=== PATIENT | female | born 1995 | race Caucasian/White ===

== ENCOUNTER 2016-07-10 08:00 | Emergency (ER) | payer OTHER ==
[~2016-07-10] VITALS: Ht 157.5 cm; Wt 73.8 kg
[~2016-07-10 08:00] MED LIST: ONDA4TAB46 PO
[2016-07-10 08:06] VITALS: TEMP 36.8; Ht 157.5 cm; Wt 73.8 kg
[2016-07-10] MEDS ORDERED: PRLSR20 PO (08:35)
[2016-07-10] MEDS ORDERED: ZLF/50 PO (08:35)
[2016-07-10] MEDS ORDERED: CLR10 PO (08:35)
[2016-07-10 09:00] VITALS: BP 108/83; PULSE 70; O2SAT 97
--- NOTE | 2016-07-10 17:14 | EMERGENCY ROOM VISIT NOTE ---
ED Visit Note First contact with patient: 08:14 Chief Complaint: Needlestick injury. History of Present Illness: Ms. Denise is a 21-year-old white female who ambulates into the ED complaining of a needlestick injury to the finger pad of the left thumb. 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 She reports approximately one hour ago she was drawing blood on a patient from [facility]. She was disposing of her needle when the patient became combative. During his combative area she reports her thumb went into the sharps container and she sustained a needlestick injury to the thumb. She does report the container was partially fold from previous blood draws at the facility; approximately 10-15, and she did have mild bleeding. She does not know the health status of the patient that she was drawing at the time of the injury or any of the other 10-15 people which she had drawn blood from. Prior to being seen in the ED she does report she cleansed the area with soap and water and control bleeding. Currently she has no additional complaints. Review of Systems: As noted above in history of present illness. Past Medical History: Irritable bowel syndrome, kidney stones, status post tonsillectomy, wisdom teeth extraction and unspecified sinus surgery. Current Medications: Prilosec, Claritin and Sertraline. Allergies to Medications: Patient denies. Social History: Patient is currently employed; she feels safe in her home environment; she admits to tobacco use and denies alcohol use. Physical Examination: Vital Signs: Date Time Temp Pulse Resp B/P Pulse Ox O2 Delivery O2 Flow Rate FiO2 07/10/16 09:00 70 18 108/83 97 07/10/16 08:06 36.8 87 18 119/76 97 Room Air GENERAL: 21-year-old female in no acute distress, nontoxic-appearing, afebrile and hemodynamically stable. NEUROLOGICAL: Awake, alert and oriented to person, place and time. Answering questions appropriately and following commands. Good hand eye coordination. SKIN: Warm, dry and pink. Left Thumb: Over the finger pad there is one noted puncture wound with no active bleeding. LEFT THUMB: No gross bony deformity. Please note description above under SKIN. Throughout the thumb the skin was warm and pink and capillary refill is brisk. She is able to distinguish light sensations through all dermatomes. ED Course: Patient is assessed as noted above. Patient was educated about vladimiright's findings and instructed on her treatment plan; she verbalizes understanding and agreement with this plan. Clinical Impression: Work-related needlestick injury and blood exposure. Disposition: Patient discharged home in stable condition; prior to departure she was reassessed and subjectively reported she was still pain and symptom- free. Plan: Comfort measures, wound care and signs of infection were discussed with the patient. Patient is encouraged to go to the outpatient lab for drawing of normal tests. Patient is encouraged to follow-up at [facility] for testing results and/ or signs of infection.
== END 2016-07-10 09:10 | disposition home or self-care (01) ==
LOC: C.EDB 08:01 → C.EDA 09:10
DX: S61.032A Puncture wound without foreign body of left thumb without damage to nail, initial encounter (principal); Z77.21 Contact with and (suspected) exposure to potentially hazardous body fluids; W46.1XXA Contact with contaminated hypodermic needle, initial encounter; Y92.129 Unspecified place in nursing home as the place of occurrence of the external cause; Y99.0 Civilian activity done for income or pay; K58.9 Irritable bowel syndrome, unspecified; Z87.442 Personal history of urinary calculi; Z79.899 Other long term (current) drug therapy; Z72.0 Tobacco use

== ENCOUNTER 2017-10-31 20:30 | Emergency (ER) | payer OTHER ==
[~2017-10-31] VITALS: Ht 154.9 cm; Wt 70.5 kg
[~2017-10-31 20:30] MED LIST changes: +CLR10 PO; -ONDA4TAB46 PO; +PRLSR20 PO; +ZLF/50 PO
[2017-10-31 20:31] VITALS: TEMP 36.6; Ht 154.9 cm; Wt 70.5 kg
[2017-10-31] MEDS ORDERED: SODIUM CHLORIDE 0.9% 1000ML 1,000 ML IV STA (20:39)
[2017-10-31 21:01] LABS: BASO % 0.1 %; BASO ABS # 0.01 K/uL (0-0.2); EOS % 1.7 %; EOS ABS # 0.13 K/uL (0-0.5); HEMATOCRIT 41.8 % (37-47); HEMOGLOBIN 14.1 g/dL (12.0-16.0); IG# 0.01 K/uL (0.00-0.02); LYMPH % 39.4 %; LYMPH ABS # 3.05 K/uL (1.2-3.4); MEAN CELL VOLUME 80.4 fL (80-100); MEAN CORPUSCULAR HEMOGLOBIN 27.1 pg (25-34); MEAN CORPUSCULAR HGB CONC 33.7 g/dl (32-36); MEAN PLATELET VOLUME 10.5 fL (7.4-10.4); MONO ABS # 0.62 K/uL (0.11-0.59); NEUT % 50.7 %; NEUT ABS # 3.92 K/uL (1.4-6.5); PLATELET COUNT 262 K/uL (130-400); RED CELL DISTRIBUTION WIDTH CV 12.7 % (11.5-14.5); RED CELL DISTRIBUTION WIDTH SD 36.9 fL (36.4-46.3); WHITE BLOOD COUNT 7.74 K/uL (4.8-10.8)
[2017-10-31 21:23] LABS: ALBUMIN 3.7 gm/dl (3.4-5.0); ALKALINE PHOSPHATASE 73 U/L (45-117); ALT/SGPT 30 U/L (12-78); AST/SGOT 20 U/L (15-37); BLOOD UREA NITROGEN 9 mg/dl (7-18); CALCIUM 9.4 mg/dl (8.5-10.1); CARBON DIOXIDE 26 mmol/L (21-32); CREATININE 0.73 mg/dl (0.60-1.20); GLUCOSE 93 mg/dl (70-99); LIPASE 169 U/L (73-393); POTASSIUM 3.7 mmol/L (3.5-5.1); SODIUM 138 mmol/L (136-145); TOTAL PROTEIN 8.1 gm/dl (6.4-8.2)
--- NOTE | 2017-10-31 21:36 | DIAGNOSTIC IMAGING REPORT ---
(ELOY/BLAD)RETROPERITON COMP CLINICAL HISTORY: 22 years-old Female presenting with eval for hydro. TECHNIQUE: Real-time grayscale and limited color Doppler ultrasound imaging of the kidneys and bladder was performed. COMPARISON: None. FINDINGS: Right kidney: Normal echogenicity of renal parenchyma. Right kidney measures 10.4 cm. No hydronephrosis. No convincing evidence of calculus or mass. Left kidney: Normal echogenicity of renal parenchyma. Left kidney measures 10.9 cm. No hydronephrosis. No convincing evidence of calculus or mass. Bladder: Normal. Bilateral ureteral jets present. Other: Hyperechogenicity of hepatic parenchyma suggests hepatic steatosis. IMPRESSION: 1. Normal renal ultrasound. No obstruction. 2. Findings suggest hepatic steatosis. Electronically signed by: Don Restrepo M.D. 10/31/2017 9:34 PM Dictated Date/Time: 10/31/2017 9:33 PM
[2017-10-31] MEDS ORDERED: KETOROLAC TROMETHAMINE 30 MG/ML VIAL IV STA (21:51)
[2017-10-31] MEDS ORDERED: SULF800T23 PO (22:44)
[2017-10-31 22:54] VITALS: BP 100/72; PULSE 71; O2SAT 97
[2017-10-31] MEDS ORDERED: OMEP40CA41 PO (22:55)
--- NOTE | 2017-10-31 23:02 | EMERGENCY ROOM VISIT NOTE ---
History Report prepared by Nerissa: Gloria Poon Under the Supervision of: Dr. Ruiz Goff M.D. First contact with patient: 20:35 Chief Complaint: KIDNEY STONE Stated Complaint: POSSIBLE UTI, KIDNEY STONES History of Present Illness The patient is a 22 year old female who presents to the Emergency Room with complaints of worsening back pain that started a week ago. The patient reports that the pain is mostly in the right side of her back and that it does not radiate. She notes that the pain had been intermittent over the past week but has significantly worsened over the past 2 days. She currently rates her pain a 6/10. She also states that her urine smells and andres. She reports that her symptoms have been accompanied by nausea and one episode of incontinence yesterday. She just stated that she had to go to the bathroom did make it on time. She has not had any incontinence since then. She has had no radiation of her pain down her legs. She denies numbness and weakness in her legs. The patient notes that she is currently on her period and has noticed no abnormal discharge or bleeding otherwise. She does have a history of kidney stones and states that this feels very similar to her prior symptoms. Source of History: patient Onset: a week ago Position: back (right side) Symptom Intensity: 6/10 Quality: other (pain) Timing: worsening Modifying Factors (Relieving): other (Lying down) Associated Symptoms: + nausea, + urinary symptoms (urine smells and andres) Note: Additional symptoms: incontinence Review of Systems See HPI for pertinent positives & negatives. A total of 10 systems reviewed and were otherwise negative. Past Medical & Surgical Medical Problems: (1) IBS (irritable bowel syndrome) (2) Kidney stones Family History Cancer Diabetes mellitus FHx: gallbladder disease Heart disease Hypertension Social History Smoking Status: Current Every Day Smoker Marital Status: single Housing Status: lives with family Current/Historical Medications Scheduled Loratadine (Claritin), 10 MG PO DAILY Omeprazole (Prilosec), 40 MG PO DAILY Sertraline HCl (Sertraline HCl), 50 MG PO DAILY Sulfa/Trimethoprim (Bactrim Ds 800MG/160MG), 1 TAB PO BID Allergies Coded Allergies: No Known Allergies (Unverified , 07/10/16) Physical Exam Vital Signs Date Time Temp Pulse Resp B/P (MAP) Pulse Ox O2 Delivery O2 Flow Rate FiO2 10/31/17 22:54 71 16 100/72 97 10/31/17 21:49 71 18 109/60 98 Room Air 10/31/17 20:31 36.6 83 16 136/89 97 Room Air Physical Exam Constitutional: Vital signs reviewed. Eyes: Pupils are equal round reactive to light. Conjunctiva are noninjected. ENT: Pharynx is clear without erythema or exudate. Mucous membranes are moist. Neck supple without meningeal signs. Respiratory: Clear to auscultation bilaterally. Breath sounds are equal bilaterally. Cardiovascular: Regular rate and rhythm. No rubs or gallops. GI: Soft, nondistended and nontender. Bowel sounds are present. Musculoskeletal: No peripheral edema. No lower extremity tenderness. No CVA tenderness. No midline tenderness to the lumbosacral spine. Integumentary: No cyanosis. Neurological: The patient is awake and alert. No focal deficits. Normal gait. Psychiatric: Normal affect. Medical Decision & Procedures ER Provider Diagnostic Interpretation: Radiology results as stated below per my review and the radiologist's interpretation: (ELOY/BLAD)RETROPERITON COMP CLINICAL HISTORY: 22 years-old Female presenting with eval for hydro. TECHNIQUE: Real-time grayscale and limited color Doppler ultrasound imaging of the kidneys and bladder was performed. COMPARISON: None. FINDINGS: Right kidney: Normal echogenicity of renal parenchyma. Right kidney measures 10.4 cm. No hydronephrosis. No convincing evidence of calculus or mass. Left kidney: Normal echogenicity of renal parenchyma. Left kidney measures 10.9 cm. No hydronephrosis. No convincing evidence of calculus or mass. Bladder: Normal. Bilateral ureteral jets present. Other: Hyperechogenicity of hepatic parenchyma suggests hepatic steatosis. IMPRESSION: 1. Normal renal ultrasound. No obstruction. 2. Findings suggest hepatic steatosis. Electronically signed by: Don Restrepo M.D. 10/31/2017 9:34 PM Dictated Date/Time: 10/31/2017 9:33 PM Laboratory Results 10/31/17 20:46 Red Blood Count 5.20, Mean Corpuscular Volume 80.4, Mean Corpuscular Hemoglobin 27.1, Mean Corpuscular Hemoglobin Concent 33.7, Mean Platelet Volume 10.5, Neutrophils (%) (Auto) 50.7, Lymphocytes (%) (Auto) 39.4, Monocytes (%) (Auto) 8.0, Eosinophils (%) (Auto) 1.7, Basophils (%) (Auto) 0.1, Neutrophils # (Auto) 3.92, Lymphocytes # (Auto) 3.05, Monocytes # (Auto) 0.62, Eosinophils # (Auto) 0.13, Basophils # (Auto) 0.01 10/31/17 20:46 Test 10/31/17 20:46 10/31/17 21:40 White Blood Count 7.74 K/uL (4.8-10.8) Red Blood Count 5.20 M/uL (4.2-5.4) Hemoglobin 14.1 g/dL (12.0-16.0) Hematocrit 41.8 % (37-47) Mean Corpuscular Volume 80.4 fL (80-100) Mean Corpuscular Hemoglobin 27.1 pg (25-34) Mean Corpuscular Hemoglobin Concent 33.7 g/dl (32-36) Platelet Count 262 K/uL (130-400) Mean Platelet Volume 10.5 fL (7.4-10.4) Neutrophils (%) (Auto) 50.7 % Lymphocytes (%) (Auto) 39.4 % Monocytes (%) (Auto) 8.0 % Eosinophils (%) (Auto) 1.7 % Basophils (%) (Auto) 0.1 % Neutrophils # (Auto) 3.92 K/uL (1.4-6.5) Lymphocytes # (Auto) 3.05 K/uL (1.2-3.4) Monocytes # (Auto) 0.62 K/uL (0.11-0.59) Eosinophils # (Auto) 0.13 K/uL (0-0.5) Basophils # (Auto) 0.01 K/uL (0-0.2) RDW Standard Deviation 36.9 fL (36.4-46.3) RDW Coefficient of Variation 12.7 % (11.5-14.5) Immature Granulocyte % (Auto) 0.1 % Immature Granulocyte # (Auto) 0.01 K/uL (0.00-0.02) Anion Gap 6.0 mmol/L (3-11) Est Creatinine Clear Calc Drug Dose 108.5 ml/min Estimated GFR () 135.5 Estimated GFR (Non- 116.9 BUN/Creatinine Ratio 12.7 (10-20) Calcium Level 9.4 mg/dl (8.5-10.1) Total Bilirubin 0.2 mg/dl (0.2-1) Direct Bilirubin < 0.1 mg/dl (0-0.2) Aspartate Amino Transf (AST/SGOT) 20 U/L (15-37) Alanine Aminotransferase (ALT/SGPT) 30 U/L (12-78) Alkaline Phosphatase 73 U/L (45-117) Total Protein 8.1 gm/dl (6.4-8.2) Albumin 3.7 gm/dl (3.4-5.0) Lipase 169 U/L (73-393) Urine Color YELLOW Urine Appearance TURBID (CLEAR) Urine pH 8.5 (4.5-7.5) Urine Specific Chapman 1.017 (1.000-1.030) Urine Protein NEG (NEG) Urine Glucose (UA) NEG (NEG) Urine Ketones NEG (NEG) Urine Occult Blood 1+ (NEG) Urine Nitrite NEG (NEG) Urine Bilirubin NEG (NEG) Urine Urobilinogen NEG (NEG) Urine Leukocyte Esterase NEG (NEG) Urine WBC (Auto) 0 /hpf (0-5) Urine RBC (Auto) 0-4 /hpf (0-4) Urine Hyaline Casts (Auto) 0 /lpf (0-5) Urine Epithelial Cells (Auto) 20-30 /lpf (0-5) Urine Bacteria (Auto) NEG (NEG) Urine Test NEG (NEG) Laboratory results as reviewed by me. Medications Administered Medications (Trade) Dose Ordered Sig/Tan Route Start Time Stop Time Status Last Admin Dose Admin Sodium Chloride 1,000 ml @ 999 mls/hr Q1H1M STAT IV 10/31/17 20:39 10/31/17 21:39 DC 10/31/17 20:39 999 MLS/HR Ketorolac Tromethamine (Toradol Inj) 10 mg NOW STAT IV 10/31/17 21:51 10/31/17 21:52 DC 10/31/17 21:57 10 MG ED Course 2037: The patient was evaluated in room C4. A complete history and physical exam was performed. 2038: Administered Sodium Chloride 1000 ml @ 999 mls/hr IV. 2149: I checked on the patient and discussed her ultrasound and blood work results. 2150: Administered Toradol Inj 10 mg IV. 2249: Upon reevaluation, the patient appeared to have improvement of her symptoms. I discussed tonroberto's findings with her. She verbalized agreement of the treatment plan. The patient was discharged home. Medical Decision This is a 22-year-old female presents with bilateral flank pain. Differential diagnosis includes ureterolithiasis, hydronephrosis, UTI, pyelonephritis, strain. I did perform a limited focused review of portions of the patient's old chart on the electronic medical record. The patient has had no recent pertinent visits to this hospital. I did evaluate the patient as noted above. Patient is presenting with bilateral flank pain, greater on the right side. She states it feels similar to when she had a previous kidney stone. IV access was established. I did order and personally review the patient's urinalysis as described above. There is no evidence of infection. She does have hematuria. The urine culture was sent. I did treat her with Toradol IV. I did order and review the patient's blood work as noted in the electronic medical record. Her white blood cell count is not elevated. Renal function is normal. I did order an ultrasound of the kidneys. I did review the images myself as well as the radiology report as described above. There is no evidence of hydronephrosis or kidney stone. I did reassess patient. She is feeling better. It is unclear what is causing her back pain. She has had it for about a week. I do not suspect an acute surgical process. She has no abdominal tenderness. She does state that is sometimes better when she lies down and worse when she moves. It may be musculoskeletal. I did recommend she continue using NSAIDs and follow-up closely with her doctor. She does state that she has had dysuria and no diarrhea and so I did treat her with antibiotics. She was given Bactrim here and discharged with a prescription for Bactrim. Medication Reconcilliation Current Medication List: was personally reviewed by me Blood Pressure Screening Patient's blood pressure: Elevated blood pressure Blood pressure disposition: Referred to PCP Impression Primary Impression: Bilateral flank pain Additional Impression: Dysuria Scribe Attestation The scribe's documentation has been prepared under my direct and personally reviewed by me in its entirety. I confirm that the note above accurately reflects all work, treatment, procedures, and medical decision making performed by me. Departure Information Dispostion Home / Self-Care Prescriptions Sulfa/Trimethoprim (Bactrim Ds 800MG/160MG) Tab 1 TAB PO BID, #14 TAB Prov: Ruiz Goff M.D. 10/31/17 Referrals Yuniel Dumont M.D. (PCP) Forms HOME CARE DOCUMENTATION FORM, IMPORTANT VISIT INFORMATION Patient Instructions My [facility] Additional Instructions You have been examined and treated today on an emergency basis only. This is not a substitute for, or an effort to provide, complete comprehensive medical care. It is impossible to recognize and treat all injuries or illnesses in a single emergency department visit. It is therefore important that you follow up closely with your physician. Call as soon as possible for an appointment. Return for worsening symptoms or if you develop fever, vomiting, abdominal pain , loss of control of your bowel or bladder, numbness or weakness to your legs, numbness to your private area, difficulty urinating, or any other concerning symptoms. Problem Qualifiers
== END 2017-10-31 22:54 | disposition home or self-care (01) ==
LOC: C.EDB 20:31 → C.EDC 22:54
DX: R10.31 Right lower quadrant pain (principal); R10.32 Left lower quadrant pain; R30.0 Dysuria; Z87.442 Personal history of urinary calculi; K58.9 Irritable bowel syndrome, unspecified; Z80.9 Family history of malignant neoplasm, unspecified; Z83.3 Family history of diabetes mellitus; Z83.79 Family history of other diseases of the digestive system; Z82.49 Family history of ischemic heart disease and other diseases of the circulatory system; F17.210 Nicotine dependence, cigarettes, uncomplicated; Z79.899 Other long term (current) drug therapy

== ENCOUNTER 2021-11-27 21:32 | Inpatient (IN) ==
[2021-11-28 00:22] LABS: Creatinine Urine Random 82.1 mg/dl; Protein Creatinine Ratio Urine 0.2 (0-0.2); Total Protein Urine Random 19.9 mg/dl (0-11.9)
[2021-11-28] MEDS ORDERED: PENICILLIN G POTASSIUM 6 MU in DEXTROSE 5% 250 ML IV STA (01:07)
[2021-11-28] MEDS ORDERED: BUTORPHANOL TARTRATE 1 MG/ML VIAL IV PRN (01:07)
[2021-11-28] MEDS ORDERED: OXYTOCIN 30 UNITS/500 ML BAG IV PRN ×2 (01:07→03:41)
[2021-11-28] MEDS ORDERED: LIDOCAINE 1% LOCAL 20 ML VIAL INFIL PRN (01:07)
--- NOTE | 2021-11-28 01:14 | History & Physical Report ---
Date of Service November 28, 2021 History of Present Illness Chief Complaint: onst of labor Primary Care Provider: Olimpia WelshTyshawn Bubba, DO 26 F P0010 at 38.5 weeks with onset of labor earlier last evening. Her GBS is negative. Allergies Allergy/AdvReac Type Severity Reaction Status Date / Time No Known Allergies Allergy Verified 11/07/21 21:44 Home Medications Medication Instructions Recorded Confirmed Type aspirin 81 mg chewable tablet 81 mg PO DAILY 07/13/21 11/27/21 History atomoxetine 40 mg capsule 40 mg PO QAM 07/13/21 11/27/21 History duloxetine 30 mg capsule,delayed 30 mg PO DAILY 07/13/21 11/27/21 History release (Cymbalta) prenat.vits,saw,[id number]-[id number] 1 tab PO DAILY 07/13/21 11/27/21 History Patient History Medical History ADHD Anxiety during Chest pain Diarrhea History of COVID-19 03/2021 Kidney stones Lower abdominal pain Surgical History H/O sinus surgery Hx of tonsillectomy No significant past surgical history Family History Mother Psoriatic arthritis Mother Diabetes Grandfather (Maternal) Asthma Grandfather (Paternal) Asthma Grandfather (Maternal) Myocardial infarction Grandfather (Paternal) Myocardial infarction Mother Hypertension Father Hypertension Other No significant family history Social History Smoking Status: Former smoker Age Quit Using Tobacco: 25; Hx Alcohol Use: No Hx Substance Use: No Preferred Language: Yoruba Communication Ability: Effective Engineering Tech Required: No Beliefs That Will Affect Care: None marital status: Single Current Living Situation: Spouse Current Living Situation Comment: FOB current occupational status: employed and student current occupation: HEAD START COORDINATOR- [employer] Other Information That Helps Us Care for You: No Feels Safe at Home: Yes Safety Concerns: Feels Safe At This Time Childhood Exposure to Second-Hand Smoke: No Dental Care, Regularly: Yes Seatbelt Use: always Sunscreen Use: Yes Do you think of yourself as: straight/heterosexual Gender Identity: Female Assistive Devices: Contacts and Glasses OB History primip YACHT HAND History neg Review of Systems All systems reviewed & are unremarkable except as noted in HPI & below Results & Data ([facility]) Vital Signs (Past 12 Hours) Vital Signs Temp Pulse Resp BP 11/27/21 23:21 20 11/27/21 23:21 37.0 C 20 11/28/21 00:50 98 H 134/84 11/28/21 00:40 103 H 153/89 H 11/28/21 00:31 100 H 140/80 11/28/21 00:11 100 H 159/87 H 11/28/21 00:02 101 H 154/104 H 11/27/21 23:51 115 H 136/90 11/27/21 23:40 110 H 166/97 H 11/27/21 23:30 106 H 128/94 11/27/21 23:20 92 H 140/87 11/27/21 23:10 103 H 148/95 H 11/27/21 23:00 96 H 148/95 H 11/27/21 22:51 96 H 159/98 H 11/27/21 22:41 109 H 140/91 11/27/21 22:31 109 H 145/95 H 11/27/21 22:20 100 H 146/95 H 11/27/21 22:02 99 H 138/91 11/27/21 21:43 114 H 142/94 H 11/27/21 21:44 37.1 C 120 H 18 147/95 H Laboratory Results Laboratory Results - last 48 hr 11/27/21 22:55 Ur Random Creatinine 82.1 U Random Total Protein 19.9 H Protein/Creatinin Ratio 0.2 Code Status & VTE Plan VTE Prophylaxis Plan VTE Prophylaxis will be ordered: No Monitoring External Monitor Cat 1
--- NOTE | 2021-11-28 01:18 | Labor Progress Brief Note ---
Date of Service November 28, 2021 Assessment & Plan Admission and Anticipated Discharge Date Admission Date: November 28, 2021 Physical Exam Genitourinary: Manual OB Exam: + cervical dilation 3 cm, + cervical effacement 70% and + station -2 OB Exam Monitor Tracing: + external FHT monitor used, + external uterine monitor used, + category I and + normal FHT variability Results & Data ([facility]) Vital Signs (Past 12 Hours) Vital Signs Temp Pulse Resp BP 11/28/21 01:11 99 H 136/83 11/27/21 23:21 20 11/27/21 23:21 37.0 C 20 11/28/21 00:50 98 H 134/84 11/28/21 00:40 103 H 153/89 H 11/28/21 00:31 100 H 140/80 11/28/21 00:11 100 H 159/87 H 11/28/21 00:02 101 H 154/104 H 11/27/21 23:51 115 H 136/90 11/27/21 23:40 110 H 166/97 H 11/27/21 23:30 106 H 128/94 11/27/21 23:20 92 H 140/87 11/27/21 23:10 103 H 148/95 H 11/27/21 23:00 96 H 148/95 H 11/27/21 22:51 96 H 159/98 H 11/27/21 22:41 109 H 140/91 11/27/21 22:31 109 H 145/95 H 11/27/21 22:20 100 H 146/95 H 11/27/21 22:02 99 H 138/91 11/27/21 21:43 114 H 142/94 H 11/27/21 21:44 37.1 C 120 H 18 147/95 H
[2021-11-28 01:27] LABS: Hematocrit (blood only) 32.6 % (34.1-44.9); Hemoglobin 11.4 g/dl (12.0-16.0); Mean Corpuscular Hemoglobin 28.6 pg (25.0-34.0); Mean Corpuscular Volume 81.9 fL (80.0-100.0); Mean Platelet Volume 10.4 fL (9.4-12.3); Platelet Count 177 K/uL (130-400); RDW Standard Deviation 38.3 fL (36.4-46.3); Red Blood Count 3.98 M/uL (3.93-5.22); White Blood Count 13.02 K/ul (4.8-10.8)
[2021-11-28] MEDS ORDERED: NALBUPHINE HCL INJ 10 MG/ML AMP IV PRN (02:26)
[2021-11-28] MEDS ORDERED: diphenhydrAMINE 50 MG/ML VIAL IV PRN (02:26)
[2021-11-28] MEDS ORDERED: ONDANSETRON INJ 2 MG/ML 2 ML VIAL IV PRN (02:26)
[2021-11-28] MEDS ORDERED: ePHEDrine sulfate 50 MG/ML AMP IV PRN (02:26)
[2021-11-28] MEDS ORDERED: NALOXONE HCL 1 MG in SODIUM CHLORIDE 0.9% 1000ML 1,000 ML IV PRN (02:26)
[2021-11-28] MEDS ORDERED: NALOXONE HCL 0.4 MG/1 ML VIAL/CARP IV PRN (02:26)
[2021-11-28] MEDS: LACTATED RINGER'S 1,000 ML IV PRN ×4 (02:30→22:08)
[2021-11-28] MEDS ORDERED: ePHEDrine sulfate 50 MG/ML AMP ONE (02:35)
[2021-11-28] MEDS ORDERED: LIDOCAINE 2%/EPINEPHRINE 1:200,000 20 ML SDV ONE (02:36)
[2021-11-28] MEDS ORDERED: BUPIVACAINE 0.25% 30 ML VIAL ONE ×2 (02:36→20:10)
[2021-11-28] MEDS ORDERED: SODIUM CHLORIDE 0.9% INJ 10 ML VIAL ONE (02:36)
[2021-11-28] MEDS ORDERED: fentaNYL citrate 100 MCG/2 ML VIAL ONE (02:36)
[2021-11-28] MEDS ORDERED: fentaNYL 2MCG/ML ROPIVACAINE 1.25MG/ML 100 ML BAG EPI ONE (02:36)
--- NOTE | 2021-11-28 02:37 | Anesthesiology Consultation ---
Date of Service November 28, 2021 Assessment & Plan Chart Review Chart Review: Patient NOT seen in Pre Admission Testing and Acceptable Risk for Labor Epidural Consults Requested none ASA ASA2 Proposed Anesthesia Anesthesia Type: Labor Epidural and CSE Risk / Benefits Reviewed With: PT / POA / Parent / Guardian, Accepts Plan and Informed Consent Obtained History Height/Weight Height: 5 ft 1 in Weight: 92.533 kg Allergies Allergy/AdvReac Type Severity Reaction Status Date / Time No Known Allergies Allergy Verified 11/07/21 21:44 Medications Home Medications Medication Instructions Recorded Confirmed Last Taken aspirin 81 mg chewable tablet 81 mg PO DAILY 07/13/21 11/27/21 11/27/21 10:00 atomoxetine 40 mg capsule 40 mg PO QAM 07/13/21 11/27/21 11/27/21 10:00 duloxetine 30 mg capsule,delayed 30 mg PO DAILY 07/13/21 11/27/21 11/27/21 10:00 release (Cymbalta) prenat.vits,saw,[id number] 1 tab PO DAILY 07/13/21 11/27/21 11/27/21 10:00 NPO Date Last Intake of Fluids: 11/28/21 Time Last Intake of Fluids: 02:00 Date Last Intake of Solids: 11/27/21 Time Last Intake of Solids: 19:00 Past Medical History Medical History ADHD Anxiety during Chest pain Diarrhea History of COVID-19 03/2021 Kidney stones Lower abdominal pain Exercise / Class Metabolic Activity II 4-5 Yardwork/Stairs/Walk up hill Past Family History Family History Mother Psoriatic arthritis Mother Diabetes Grandfather (Maternal) Asthma Grandfather (Paternal) Asthma Grandfather (Maternal) Myocardial infarction Grandfather (Paternal) Myocardial infarction Mother Hypertension Father Hypertension Other No significant family history Past Surgical History Surgical History H/O sinus surgery Hx of tonsillectomy No significant past surgical history Past Anesthesia History No Hx of Anesthesia Complications and No Family Hx of Anesthesia Complications History of PONV No Hx of PONV and No Hx of Motion Sickness Social History Smoking Status: Former smoker Hx Alcohol Use: No Hx Substance Use: No substance use type: does not use Review of Systems no chest pain or sob Physical Exam Vital Signs Last Vital Signs Temp 37.0 C 11/27/21 23:21 Pulse 90 11/28/21 02:30 Resp 20 11/27/21 23:21 BP 140/95 11/28/21 02:30 SpO2 99 ENMT Mouth: no TMJ abnormality Thyromental Distance: > or= 3.5 Finger Breadths Mallampati Class: II Neck normal visual inspection Respiratory normal respiratory effort Auscultation: lungs clear to auscultation bilaterally Cardiovascular Rate/Rhythm: regular rate and regular rhythm Musculoskeletal Spine: normal cervical ROM Neurologic moves all extremities Psychiatric Orientation: alert and oriented x 3 Testing Laboratory Results 11/28/21 01:14
[2021-11-28] MEDS: PENICILLIN G POTASSIUM 3 MU in DEXTROSE 5% 100 ML IV PRN ×5 (06:12→22:08)
--- NOTE | 2021-11-28 08:58 | Obstetrical Progress Note ---
Date of Service November 28, 2021 Assessment & Plan Admission and Anticipated Discharge Date Admission Date: November 28, 2021 Subjective Patient seen and examined. She is known to me from before. She was admitted by Dr. Saavedra last night for labor and SROM at 4:30 AM this morning. Reviewed her chart and confirmed with her. She has received epidural and comfortable now. Oxytocin was started and it is at 3 international unit/min. heart rate category 1, She is on her side and toco does not monitor contractions, Cervix is 3 to 4 cm, 70%, head at -2 station. GBS positive, received 2 dose of penicillin. Continue to monitor closely. Results & Data ([facility]) Vital Signs (Past 12 Hours) Vital Signs Temp Pulse Resp BP Pulse Ox 11/28/21 07:10 36.9 C 18 11/28/21 08:53 107 H 130/71 97 11/28/21 08:48 97 H 97 11/28/21 08:43 96 H 95 11/28/21 08:41 94 H 94 11/28/21 08:38 97 11/28/21 08:38 101 H 11/28/21 08:38 93 H 129/69 11/28/21 08:33 98 H 97 11/28/21 08:28 96 11/28/21 08:28 99 H 11/28/21 08:28 95 H 94 11/28/21 08:23 92 H 120/64 97 11/28/21 08:18 103 H 97 11/28/21 08:13 100 H 97 11/28/21 08:14 108 H 91 11/28/21 08:08 96 11/28/21 08:08 100 H 11/28/21 08:08 109 H 139/86 11/28/21 08:00 18 11/28/21 08:00 18 11/28/21 08:03 97 H 97 11/28/21 07:58 94 H 96 11/28/21 07:30 18 11/28/21 07:30 18 11/28/21 07:53 100 H 136/84 98 11/28/21 07:48 107 H 97 11/28/21 07:43 104 H 100 11/28/21 07:38 97 11/28/21 07:38 98 H 11/28/21 07:38 101 H 137/81 11/28/21 07:36 109 H 93 11/28/21 07:33 103 H 98 11/28/21 07:32 103 H 133/76 11/28/21 07:28 93 H 97 11/28/21 07:23 111 H 96 11/28/21 07:22 108 H 92 11/28/21 07:18 97 H 96 11/28/21 07:05 95 H 96 11/28/21 07:00 105 H 96 11/28/21 06:55 95 H 95 11/28/21 06:50 94 H 96 11/28/21 06:45 100 H 96 11/28/21 06:41 91 H 122/67 11/28/21 06:40 94 H 97 11/28/21 06:35 96 H 97 11/28/21 06:30 97 H 97 11/28/21 06:25 93 H 98 11/28/21 06:20 36.8 C 94 H 18 96 11/28/21 06:15 95 H 98 11/28/21 06:10 98 H 135/76 98 11/28/21 06:05 97 H 97 11/28/21 06:00 108 H 96 11/28/21 05:55 100 H 98 11/28/21 05:56 98 H 135/80 11/28/21 05:50 97 H 97 11/28/21 05:45 99 H 97 11/28/21 05:43 96 H 90 11/28/21 05:40 98 H 131/71 97 11/28/21 05:35 93 H 97 11/28/21 05:30 100 H 96 11/28/21 05:27 104 H 93 11/28/21 05:25 102 H 129/67 96 11/28/21 05:20 96 11/28/21 05:20 96 H 11/28/21 05:20 105 H 93 11/28/21 05:15 97 H 97 11/28/21 05:14 99 H 94 11/28/21 05:10 106 H 128/67 96 11/28/21 05:05 100 H 95 11/28/21 05:02 103 H 94 11/28/21 05:00 100 H 96 11/28/21 04:55 103 H 129/69 95 11/28/21 04:50 95 H 95 11/28/21 04:45 99 H 95 11/28/21 04:40 95 11/28/21 04:40 96 H 11/28/21 04:40 99 H 139/76 94 11/28/21 04:35 97 H 96 11/28/21 04:30 36.8 C 97 H 97 11/28/21 04:27 110 H 137/69 11/28/21 04:25 106 H 96 11/28/21 04:20 102 H 97 11/28/21 04:15 102 H 96 11/28/21 04:10 104 H 144/87 H 96 11/28/21 04:05 98 H 97 11/28/21 04:00 96 H 97 11/28/21 03:56 94 H 136/84 11/28/21 03:55 95 H 97 11/28/21 03:50 97 H 98 11/28/21 03:45 94 H 98 11/28/21 03:40 97 11/28/21 03:40 103 H 11/28/21 03:40 106 H 141/94 H 93 11/28/21 03:35 94 H 98 11/28/21 03:20 18 11/28/21 03:20 18 11/28/21 03:30 96 H 97 11/28/21 03:25 92 H 98 11/28/21 03:23 101 H 143/96 H 11/28/21 03:20 98 11/28/21 03:20 90 11/28/21 03:20 91 H 141/94 H 11/28/21 03:17 94 H 146/98 H 11/28/21 03:15 99 H 98 11/28/21 03:14 93 H 151/98 H 11/28/21 03:10 100 H 98 11/28/21 03:11 93 H 149/96 H 93 11/28/21 03:08 95 H 143/96 H 11/28/21 03:05 98 11/28/21 03:05 92 H 11/28/21 03:05 90 18 153/98 H 11/28/21 03:02 94 H 150/97 H 11/28/21 03:00 95 H 98 11/28/21 02:59 101 H 18 147/96 H 11/28/21 02:56 90 20 148/97 H 11/28/21 02:55 94 H 97 11/28/21 02:53 100 H 150/99 H 11/28/21 02:50 97 H 144/97 H 97 11/28/21 02:45 102 H 98 11/28/21 02:40 98 H 95 11/28/21 02:30 90 140/95 11/28/21 01:11 99 H 136/83 11/27/21 23:21 20 11/27/21 23:21 37.0 C 20 11/28/21 00:50 98 H 134/84 11/28/21 00:40 103 H 153/89 H 11/28/21 00:31 100 H 140/80 11/28/21 00:11 100 H 159/87 H 11/28/21 00:02 101 H 154/104 H 11/27/21 23:51 115 H 136/90 11/27/21 23:40 110 H 166/97 H 11/27/21 23:30 106 H 128/94 11/27/21 23:20 92 H 140/87 11/27/21 23:10 103 H 148/95 H 11/27/21 23:00 96 H 148/95 H 11/27/21 22:51 96 H 159/98 H 11/27/21 22:41 109 H 140/91 11/27/21 22:31 109 H 145/95 H 11/27/21 22:20 100 H 146/95 H 11/27/21 22:02 99 H 138/91 11/27/21 21:43 114 H 142/94 H 11/27/21 21:44 37.1 C 120 H 18 147/95 H
[2021-11-28] MEDS ORDERED: DULoxetine HCL 30 MG CAP PO SCH (09:00)
[2021-11-28] MEDS: ATOMOXETINE HCL 40 MG CAPSULE PO SCH (10:13)
[2021-11-28] MEDS: fentaNYL 2MCG/ML ROPIVACAINE 1.25MG/ML 100 ML BAG EPI PRN ×3 (12:14→21:05)
[2021-11-28] MEDS: DULoxetine HCL 60 MG CAP PO SCH (13:57)
--- NOTE | 2021-11-28 18:19 | Obstetrical Progress Note ---
Date of Service November 28, 2021 Assessment & Plan Admission and Anticipated Discharge Date Admission Date: November 28, 2021 Subjective Patient is related. She started to feel pressure. Vaginal exam, cervix is 8 cm dilated, 80% effaced, with large bulging bag, AROM light meconium fluid obtained, head is at 0 station, heart rate category 1, [place] showing contractions every 2 to 3 minutes, oxytocin is at 13 mIU/min, Continue to monitor closely. Results & Data ([facility]) Vital Signs (Past 12 Hours) Vital Signs Temp Pulse Resp BP Pulse Ox 11/28/21 07:10 36.9 C 18 11/28/21 18:13 100 H 96 11/28/21 18:00 36.8 C 11/28/21 18:08 94 H 135/81 96 11/28/21 18:03 95 H 97 11/28/21 17:58 97 H 96 11/28/21 17:53 96 H 133/74 95 11/28/21 17:48 98 H 96 11/28/21 17:43 94 H 94 11/28/21 17:30 18 11/28/21 17:30 36.9 C 18 11/28/21 17:39 87 131/77 11/28/21 17:38 90 95 11/28/21 17:33 95 H 95 11/28/21 17:28 101 H 96 11/28/21 17:24 96 H 133/86 11/28/21 17:23 95 H 96 11/28/21 17:18 105 H 96 11/28/21 17:00 16 11/28/21 17:00 16 11/28/21 17:13 94 H 95 11/28/21 17:08 95 11/28/21 17:08 100 H 11/28/21 17:08 103 H 129/65 11/28/21 17:03 101 H 94 11/28/21 16:58 96 H 95 11/28/21 16:30 18 11/28/21 16:30 18 11/28/21 16:54 96 H 144/84 H 11/28/21 16:53 94 H 94 11/28/21 16:48 98 H 96 11/28/21 16:43 100 H 95 11/28/21 16:38 98 H 95 11/28/21 16:39 99 H 139/80 11/28/21 16:33 103 H 94 11/28/21 16:28 98 H 94 11/28/21 16:23 98 H 134/94 94 11/28/21 16:18 104 H 94 11/28/21 16:13 109 H 96 11/28/21 16:10 96 H 143/91 H 11/28/21 16:08 99 H 95 11/28/21 16:03 104 H 96 11/28/21 16:00 18 11/28/21 16:00 18 11/28/21 15:58 98 H 97 11/28/21 15:30 18 11/28/21 15:30 37.4 C 18 11/28/21 15:53 105 H 141/91 H 96 11/28/21 15:48 104 H 96 11/28/21 15:43 97 H 97 11/28/21 15:38 94 H 94 11/28/21 15:39 98 H 140/86 11/28/21 15:33 89 95 11/28/21 15:28 105 H 95 11/28/21 15:23 101 H 95 11/28/21 15:24 102 H 131/70 11/28/21 15:18 89 95 11/28/21 15:00 18 11/28/21 15:00 18 11/28/21 15:13 92 H 95 11/28/21 15:09 92 H 141/90 H 11/28/21 15:08 91 H 96 11/28/21 15:03 97 H 96 11/28/21 14:58 99 H 96 11/28/21 14:53 96 11/28/21 14:53 97 H 11/28/21 14:53 98 H 134/81 11/28/21 14:48 93 H 96 11/28/21 14:43 106 H 95 11/28/21 14:39 103 H 144/89 H 11/28/21 14:38 100 H 95 11/28/21 14:33 94 H 96 11/28/21 14:30 18 11/28/21 14:30 18 11/28/21 14:00 18 11/28/21 14:00 18 11/28/21 14:28 102 H 96 11/28/21 14:23 96 H 95 11/28/21 14:24 95 H 134/87 11/28/21 14:18 98 H 95 11/28/21 14:13 97 H 96 11/28/21 14:09 99 H 141/92 H 11/28/21 14:08 103 H 94 11/28/21 14:03 98 H 96 11/28/21 13:58 112 H 96 11/28/21 13:53 95 11/28/21 13:53 92 H 11/28/21 13:53 91 H 126/68 11/28/21 13:48 90 94 11/28/21 13:43 92 H 93 11/28/21 13:39 96 H 139/78 11/28/21 13:38 95 H 94 11/28/21 13:30 18 11/28/21 13:30 18 11/28/21 13:00 18 11/28/21 13:00 37.5 C 18 11/28/21 13:33 92 H 94 11/28/21 13:28 94 H 94 11/28/21 13:23 95 H 95 11/28/21 13:24 94 H 131/77 11/28/21 13:18 92 H 95 11/28/21 13:13 97 H 97 11/28/21 13:09 93 H 128/73 11/28/21 13:08 98 H 95 11/28/21 13:03 96 H 95 11/28/21 12:58 100 H 95 11/28/21 12:53 95 11/28/21 12:53 106 H 11/28/21 12:53 93 H 132/76 11/28/21 12:48 95 H 95 11/28/21 12:43 99 H 95 11/28/21 12:38 96 H 133/76 97 11/28/21 12:30 18 11/28/21 12:30 18 11/28/21 12:33 96 H 95 11/28/21 12:34 97 H 92 11/28/21 12:28 97 H 98 11/28/21 12:24 96 H 129/74 11/28/21 12:23 98 H 97 11/28/21 12:00 18 11/28/21 12:00 18 11/28/21 12:18 95 H 98 11/28/21 12:15 108 H 94 11/28/21 12:13 95 H 96 11/28/21 12:08 106 H 132/73 97 11/28/21 12:03 101 H 97 11/28/21 11:58 112 H 96 11/28/21 11:56 107 H 92 11/28/21 11:53 106 H 96 11/28/21 11:54 105 H 140/83 11/28/21 11:50 110 H 90 11/28/21 11:48 110 H 96 11/28/21 11:43 93 H 96 11/28/21 11:38 92 H 137/86 96 11/28/21 11:30 18 11/28/21 11:30 36.9 C 18 11/28/21 11:33 95 H 97 11/28/21 11:28 88 96 11/28/21 11:23 95 11/28/21 11:23 91 H 11/28/21 11:24 92 H 93 11/28/21 11:23 96 H 135/74 11/28/21 11:18 102 H 97 11/28/21 11:13 90 96 11/28/21 11:08 92 H 134/76 97 11/28/21 11:00 18 11/28/21 11:00 18 11/28/21 11:03 89 95 11/28/21 10:58 91 H 95 11/28/21 10:53 91 H 135/81 96 11/28/21 10:48 91 H 96 11/28/21 10:43 90 97 11/28/21 10:40 88 131/81 11/28/21 10:38 91 H 96 11/28/21 10:30 18 11/28/21 10:30 18 11/28/21 10:33 95 H 97 11/28/21 10:28 93 H 96 11/28/21 10:24 88 132/75 11/28/21 10:23 90 97 11/28/21 10:18 92 H 97 11/28/21 10:15 113 H 93 11/28/21 10:13 97 H 97 11/28/21 10:10 91 H 137/74 11/28/21 10:08 95 H 97 11/28/21 10:09 96 H 124/80 11/28/21 10:03 100 H 97 11/28/21 10:01 102 H 11/28/21 10:01 109 H 136/81 91 11/28/21 09:58 95 H 96 09/15/22 09:53 94 H 96 11/28/21 09:48 97 H 96 11/28/21 09:43 94 H 96 11/28/21 09:30 18 11/28/21 09:30 37.4 C 18 11/28/21 09:38 106 H 97 11/28/21 09:33 97 H 96 11/28/21 09:28 98 H 96 11/28/21 09:23 95 H 96 11/28/21 09:18 102 H 97 11/28/21 09:13 96 H 97 11/28/21 09:08 93 H 96 11/28/21 09:09 99 H 94 11/28/21 09:01 18 11/28/21 09:01 18 11/28/21 09:03 115 H 98 11/28/21 09:00 101 H 93 11/28/21 08:58 101 H 96 11/28/21 08:53 107 H 130/71 97 11/28/21 08:48 97 H 97 11/28/21 08:43 96 H 95 11/28/21 08:41 94 H 94 11/28/21 08:38 97 11/28/21 08:38 101 H 11/28/21 08:38 93 H 129/69 11/28/21 08:33 98 H 97 11/28/21 08:28 96 11/28/21 08:28 99 H 11/28/21 08:28 95 H 94 11/28/21 08:23 92 H 120/64 97 11/28/21 08:18 103 H 97 11/28/21 08:13 100 H 97 11/28/21 08:14 108 H 91 11/28/21 08:08 96 11/28/21 08:08 100 H 11/28/21 08:08 109 H 139/86 11/28/21 08:00 18 11/28/21 08:00 18 11/28/21 08:03 97 H 97 11/28/21 07:58 94 H 96 11/28/21 07:30 18 11/28/21 07:30 18 11/28/21 07:53 100 H 136/84 98 11/28/21 07:48 107 H 97 11/28/21 07:43 104 H 100 11/28/21 07:38 97 11/28/21 07:38 98 H 11/28/21 07:38 101 H 137/81 11/28/21 07:36 109 H 93 11/28/21 07:33 103 H 98 11/28/21 07:32 103 H 133/76 11/28/21 07:28 93 H 97 11/28/21 07:23 111 H 96 11/28/21 07:22 108 H 92 11/28/21 07:18 97 H 96 11/28/21 07:05 95 H 96 11/28/21 07:00 105 H 96 11/28/21 06:55 95 H 95 11/28/21 06:50 94 H 96 11/28/21 06:45 100 H 96 11/28/21 06:41 91 H 122/67 11/28/21 06:40 94 H 97 11/28/21 06:35 96 H 97 11/28/21 06:30 97 H 97 11/28/21 06:25 93 H 98 11/28/21 06:20 36.8 C 94 H 18 96
[2021-11-28] MEDS ORDERED: NURSING L&D Epidural Breakthrough Pain Update ONE (20:20)
--- NOTE | 2021-11-28 20:51 | Obstetrical Progress Note ---
Date of Service November 28, 2021 Assessment & Plan Admission and Anticipated Discharge Date Admission Date: November 28, 2021 Subjective Patient has been feeling pressure and pain, awaiting for anesthesia for pain control VE; 8/ 80%/ 0, anterior fontanelle at 9 o'clock position. FHR categ I [place] ctxs q 2-3 min,pitocin is at 13 miu/ min Plan for epidural bolus for pain control and place IUPC to adjust Oxytocin dose. [place] to monitor closely. Results & Data ([facility]) Vital Signs (Past 12 Hours) Vital Signs Temp Pulse Resp BP Pulse Ox 11/28/21 20:43 104 H 96 11/28/21 20:38 94 H 139/77 96 11/28/21 20:33 99 H 96 11/28/21 20:28 107 H 94 11/28/21 20:23 92 11/28/21 20:23 99 H 11/28/21 20:23 97 H 148/80 H 84 L 11/28/21 20:18 101 H 95 11/28/21 20:13 103 H 96 11/28/21 20:08 105 H 140/93 96 11/28/21 20:03 102 H 92 11/28/21 19:58 106 H 94 11/28/21 19:53 100 H 95 11/28/21 19:54 107 H 130/74 11/28/21 19:48 108 H 97 11/28/21 19:43 99 H 95 11/28/21 19:38 97 H 130/69 96 11/28/21 19:33 97 H 95 11/28/21 19:28 102 H 95 11/28/21 19:23 95 11/28/21 19:23 113 H 11/28/21 19:23 111 H 142/85 H 11/28/21 19:05 36.8 C 11/28/21 19:18 102 H 93 11/28/21 19:13 100 H 94 11/28/21 19:08 101 H 146/81 H 95 11/28/21 19:03 96 H 95 11/28/21 18:58 101 H 94 11/28/21 18:53 104 H 93 11/28/21 18:54 97 H 140/84 11/28/21 18:48 116 H 96 11/28/21 18:43 96 H 95 11/28/21 18:38 104 H 141/83 H 95 11/28/21 18:33 96 H 95 11/28/21 18:28 98 H 95 11/28/21 18:23 95 11/28/21 18:23 98 H 11/28/21 18:23 96 H 150/91 H 11/28/21 18:18 108 H 95 11/28/21 18:13 100 H 96 11/28/21 18:00 36.8 C 11/28/21 18:08 94 H 135/81 96 11/28/21 18:03 95 H 97 11/28/21 17:58 97 H 96 11/28/21 17:53 96 H 133/74 95 11/28/21 17:48 98 H 96 11/28/21 17:43 94 H 94 11/28/21 17:30 18 11/28/21 17:30 36.9 C 18 11/28/21 17:39 87 131/77 11/28/21 17:38 90 95 11/28/21 17:33 95 H 95 11/28/21 17:28 101 H 96 11/28/21 17:24 96 H 133/86 11/28/21 17:23 95 H 96 11/28/21 17:18 105 H 96 11/28/21 17:00 16 11/28/21 17:00 16 11/28/21 17:13 94 H 95 11/28/21 17:08 95 11/28/21 17:08 100 H 11/28/21 17:08 103 H 129/65 11/28/21 17:03 101 H 94 11/28/21 16:58 96 H 95 11/28/21 16:30 18 11/28/21 16:30 18 11/28/21 16:54 96 H 144/84 H 11/28/21 16:53 94 H 94 11/28/21 16:48 98 H 96 11/28/21 16:43 100 H 95 11/28/21 16:38 98 H 95 11/28/21 16:39 99 H 139/80 11/28/21 16:33 103 H 94 11/28/21 16:28 98 H 94 11/28/21 16:23 98 H 134/94 94 11/28/21 16:18 104 H 94 11/28/21 16:13 109 H 96 11/28/21 16:10 96 H 143/91 H 11/28/21 16:08 99 H 95 11/28/21 16:03 104 H 96 11/28/21 16:00 18 11/28/21 16:00 18 11/28/21 15:58 98 H 97 11/28/21 15:30 18 11/28/21 15:30 37.4 C 18 11/28/21 15:53 105 H 141/91 H 96 11/28/21 15:48 104 H 96 11/28/21 15:43 97 H 97 11/28/21 15:38 94 H 94 11/28/21 15:39 98 H 140/86 11/28/21 15:33 89 95 11/28/21 15:28 105 H 95 11/28/21 15:23 101 H 95 11/28/21 15:24 102 H 131/70 11/28/21 15:18 89 95 11/28/21 15:00 18 11/28/21 15:00 18 11/28/21 15:13 92 H 95 11/28/21 15:09 92 H 141/90 H 11/28/21 15:08 91 H 96 11/28/21 15:03 97 H 96 11/28/21 14:58 99 H 96 11/28/21 14:53 96 11/28/21 14:53 97 H 11/28/21 14:53 98 H 134/81 11/28/21 14:48 93 H 96 11/28/21 14:43 106 H 95 11/28/21 14:39 103 H 144/89 H 11/28/21 14:38 100 H 95 11/28/21 14:33 94 H 96 11/28/21 14:30 18 11/28/21 14:30 18 11/28/21 14:00 18 11/28/21 14:00 18 11/28/21 14:28 102 H 96 11/28/21 14:23 96 H 95 11/28/21 14:24 95 H 134/87 11/28/21 14:18 98 H 95 11/28/21 14:13 97 H 96 11/28/21 14:09 99 H 141/92 H 11/28/21 14:08 103 H 94 11/28/21 14:03 98 H 96 11/28/21 13:58 112 H 96 11/28/21 13:53 95 11/28/21 13:53 92 H 11/28/21 13:53 91 H 126/68 11/28/21 13:48 90 94 11/28/21 13:43 92 H 93 11/28/21 13:39 96 H 139/78 11/28/21 13:38 95 H 94 11/28/21 13:30 18 11/28/21 13:30 18 11/28/21 13:00 18 11/28/21 13:00 37.5 C 18 11/28/21 13:33 92 H 94 11/28/21 13:28 94 H 94 11/28/21 13:23 95 H 95 11/28/21 13:24 94 H 131/77 11/28/21 13:18 92 H 95 11/28/21 13:13 97 H 97 11/28/21 13:09 93 H 128/73 11/28/21 13:08 98 H 95 11/28/21 13:03 96 H 95 11/28/21 12:58 100 H 95 11/28/21 12:53 95 11/28/21 12:53 106 H 11/28/21 12:53 93 H 132/76 11/28/21 12:48 95 H 95 11/28/21 12:43 99 H 95 11/28/21 12:38 96 H 133/76 97 11/28/21 12:30 18 11/28/21 12:30 18 11/28/21 12:33 96 H 95 11/28/21 12:34 97 H 92 11/28/21 12:28 97 H 98 11/28/21 12:24 96 H 129/74 11/28/21 12:23 98 H 97 11/28/21 12:00 18 11/28/21 12:00 18 11/28/21 12:18 95 H 98 11/28/21 12:15 108 H 94 11/28/21 12:13 95 H 96 11/28/21 12:08 106 H 132/73 97 11/28/21 12:03 101 H 97 11/28/21 11:58 112 H 96 11/28/21 11:56 107 H 92 11/28/21 11:53 106 H 96 11/28/21 11:54 105 H 140/83 11/28/21 11:50 110 H 90 11/28/21 11:48 110 H 96 11/28/21 11:43 93 H 96 11/28/21 11:38 92 H 137/86 96 11/28/21 11:30 18 11/28/21 11:30 36.9 C 18 11/28/21 11:33 95 H 97 11/28/21 11:28 88 96 11/28/21 11:23 95 11/28/21 11:23 91 H 11/28/21 11:24 92 H 93 11/28/21 11:23 96 H 135/74 11/28/21 11:18 102 H 97 11/28/21 11:13 90 96 11/28/21 11:08 92 H 134/76 97 11/28/21 11:00 18 11/28/21 11:00 18 11/28/21 11:03 89 95 11/28/21 10:58 91 H 95 11/28/21 10:53 91 H 135/81 96 11/28/21 10:48 91 H 96 11/28/21 10:43 90 97 11/28/21 10:40 88 131/81 11/28/21 10:38 91 H 96 11/28/21 10:30 18 11/28/21 10:30 18 11/28/21 10:33 95 H 97 11/28/21 10:28 93 H 96 11/28/21 10:24 88 132/75 11/28/21 10:23 90 97 11/28/21 10:18 92 H 97 11/28/21 10:15 113 H 93 11/28/21 10:13 97 H 97 11/28/21 10:10 91 H 137/74 11/28/21 10:08 95 H 97 11/28/21 10:09 96 H 124/80 11/28/21 10:03 100 H 97 11/28/21 10:01 102 H 11/28/21 10:01 109 H 136/81 91 11/28/21 09:58 95 H 96 11/28/21 09:53 94 H 96 11/28/21 09:48 97 H 96 11/28/21 09:43 94 H 96 11/28/21 09:30 18 11/28/21 09:30 37.4 C 18 11/28/21 09:38 106 H 97 11/28/21 09:33 97 H 96 11/28/21 09:28 98 H 96 11/28/21 09:23 95 H 96 11/28/21 09:18 102 H 97 11/28/21 09:13 96 H 97 11/28/21 09:08 93 H 96 11/28/21 09:09 99 H 94 11/28/21 09:01 18 11/28/21 09:01 18 11/28/21 09:03 115 H 98 11/28/21 09:00 101 H 93 11/28/21 08:58 101 H 96 11/28/21 08:53 107 H 130/71 97
--- NOTE | 2021-11-28 21:23 | Obstetrical Progress Note ---
Date of Service November 28, 2021 Assessment & Plan Admission and Anticipated Discharge Date Admission Date: November 28, 2021 Subjective Patient is reevaluated. She has received epidural bolus about 15 min ago, she is still painful but better VE; unchanged, IUPC is placed after verbal consent was obtained US on 11/21 by DEION, AC: > 99 % ile, EFW 7 ob 14 oz at 37+ weeks Suspected LGA Patient states she is not opposed to Csection Recommended to monitor ctxs pattern for an hour and then decide She agrees Continue to monitor Results & Data ([facility]) Vital Signs (Past 12 Hours) Vital Signs Temp Pulse Resp BP Pulse Ox 11/28/21 21:18 127 H 98 11/28/21 21:13 115 H 97 11/28/21 21:08 100 H 96 11/28/21 21:05 100 H 150/89 H 11/28/21 21:03 100 H 96 11/28/21 21:02 103 H 88 L 11/28/21 21:01 97 H 148/87 H 11/28/21 20:58 98 H 97 11/28/21 20:56 99 H 141/82 H 11/28/21 20:53 98 H 98 11/28/21 20:54 96 H 141/84 H 11/28/21 20:48 120 H 98 11/28/21 20:43 104 H 96 11/28/21 20:38 94 H 139/77 96 11/28/21 20:33 99 H 96 11/28/21 20:28 107 H 94 11/28/21 20:23 92 11/28/21 20:23 99 H 11/28/21 20:23 97 H 148/80 H 84 L 11/28/21 20:18 101 H 95 11/28/21 20:13 103 H 96 11/28/21 20:08 105 H 140/93 96 11/28/21 20:03 102 H 92 11/28/21 19:58 106 H 94 11/28/21 19:53 100 H 95 11/28/21 19:54 107 H 130/74 11/28/21 19:48 108 H 97 11/28/21 19:43 99 H 95 11/28/21 19:38 97 H 130/69 96 11/28/21 19:33 97 H 95 11/28/21 19:28 102 H 95 11/28/21 19:23 95 11/28/21 19:23 113 H 11/28/21 19:23 111 H 142/85 H 11/28/21 19:05 36.8 C 11/28/21 19:18 102 H 93 11/28/21 19:13 100 H 94 11/28/21 19:08 101 H 146/81 H 95 11/28/21 19:03 96 H 95 11/28/21 18:58 101 H 94 11/28/21 18:53 104 H 93 11/28/21 18:54 97 H 140/84 11/28/21 18:48 116 H 96 11/28/21 18:43 96 H 95 11/28/21 18:38 104 H 141/83 H 95 11/28/21 18:33 96 H 95 11/28/21 18:28 98 H 95 11/28/21 18:23 95 11/28/21 18:23 98 H 11/28/21 18:23 96 H 150/91 H 11/28/21 18:18 108 H 95 11/28/21 18:13 100 H 96 11/28/21 18:00 36.8 C 11/28/21 18:08 94 H 135/81 96 11/28/21 18:03 95 H 97 11/28/21 17:58 97 H 96 11/28/21 17:53 96 H 133/74 95 11/28/21 17:48 98 H 96 11/28/21 17:43 94 H 94 11/28/21 17:30 18 11/28/21 17:30 36.9 C 18 11/28/21 17:39 87 131/77 11/28/21 17:38 90 95 11/28/21 17:33 95 H 95 11/28/21 17:28 101 H 96 11/28/21 17:24 96 H 133/86 11/28/21 17:23 95 H 96 11/28/21 17:18 105 H 96 11/28/21 17:00 16 11/28/21 17:00 16 11/28/21 17:13 94 H 95 11/28/21 17:08 95 11/28/21 17:08 100 H 11/28/21 17:08 103 H 129/65 11/28/21 17:03 101 H 94 11/28/21 16:58 96 H 95 11/28/21 16:30 18 11/28/21 16:30 18 11/28/21 16:54 96 H 144/84 H 11/28/21 16:53 94 H 94 11/28/21 16:48 98 H 96 11/28/21 16:43 100 H 95 11/28/21 16:38 98 H 95 11/28/21 16:39 99 H 139/80 11/28/21 16:33 103 H 94 11/28/21 16:28 98 H 94 11/28/21 16:23 98 H 134/94 94 11/28/21 16:18 104 H 94 11/28/21 16:13 109 H 96 11/28/21 16:10 96 H 143/91 H 11/28/21 16:08 99 H 95 11/28/21 16:03 104 H 96 11/28/21 16:00 18 11/28/21 16:00 18 11/28/21 15:58 98 H 97 11/28/21 15:30 18 11/28/21 15:30 37.4 C 18 11/28/21 15:53 105 H 141/91 H 96 11/28/21 15:48 104 H 96 11/28/21 15:43 97 H 97 11/28/21 15:38 94 H 94 11/28/21 15:39 98 H 140/86 11/28/21 15:33 89 95 11/28/21 15:28 105 H 95 11/28/21 15:23 101 H 95 11/28/21 15:24 102 H 131/70 11/28/21 15:18 89 95 11/28/21 15:00 18 11/28/21 15:00 18 11/28/21 15:13 92 H 95 11/28/21 15:09 92 H 141/90 H 11/28/21 15:08 91 H 96 11/28/21 15:03 97 H 96 11/28/21 14:58 99 H 96 11/28/21 14:53 96 11/28/21 14:53 97 H 11/28/21 14:53 98 H 134/81 11/28/21 14:48 93 H 96 11/28/21 14:43 106 H 95 11/28/21 14:39 103 H 144/89 H 09/15/22 14:38 100 H 95 11/28/21 14:33 94 H 96 11/28/21 14:30 18 11/28/21 14:30 18 11/28/21 14:00 18 11/28/21 14:00 18 11/28/21 14:28 102 H 96 11/28/21 14:23 96 H 95 11/28/21 14:24 95 H 134/87 11/28/21 14:18 98 H 95 11/28/21 14:13 97 H 96 11/28/21 14:09 99 H 141/92 H 11/28/21 14:08 103 H 94 11/28/21 14:03 98 H 96 11/28/21 13:58 112 H 96 11/28/21 13:53 95 11/28/21 13:53 92 H 11/28/21 13:53 91 H 126/68 11/28/21 13:48 90 94 11/28/21 13:43 92 H 93 11/28/21 13:39 96 H 139/78 11/28/21 13:38 95 H 94 11/28/21 13:30 18 11/28/21 13:30 18 11/28/21 13:00 18 11/28/21 13:00 37.5 C 18 11/28/21 13:33 92 H 94 11/28/21 13:28 94 H 94 11/28/21 13:23 95 H 95 11/28/21 13:24 94 H 131/77 11/28/21 13:18 92 H 95 11/28/21 13:13 97 H 97 11/28/21 13:09 93 H 128/73 11/28/21 13:08 98 H 95 11/28/21 13:03 96 H 95 11/28/21 12:58 100 H 95 11/28/21 12:53 95 11/28/21 12:53 106 H 11/28/21 12:53 93 H 132/76 11/28/21 12:48 95 H 95 11/28/21 12:43 99 H 95 11/28/21 12:38 96 H 133/76 97 11/28/21 12:30 18 11/28/21 12:30 18 11/28/21 12:33 96 H 95 11/28/21 12:34 97 H 92 11/28/21 12:28 97 H 98 11/28/21 12:24 96 H 129/74 11/28/21 12:23 98 H 97 11/28/21 12:00 18 11/28/21 12:00 18 11/28/21 12:18 95 H 98 11/28/21 12:15 108 H 94 11/28/21 12:13 95 H 96 11/28/21 12:08 106 H 132/73 97 11/28/21 12:03 101 H 97 11/28/21 11:58 112 H 96 11/28/21 11:56 107 H 92 11/28/21 11:53 106 H 96 11/28/21 11:54 105 H 140/83 11/28/21 11:50 110 H 90 11/28/21 11:48 110 H 96 11/28/21 11:43 93 H 96 11/28/21 11:38 92 H 137/86 96 11/28/21 11:30 18 11/28/21 11:30 36.9 C 18 11/28/21 11:33 95 H 97 11/28/21 11:28 88 96 11/28/21 11:23 95 11/28/21 11:23 91 H 11/28/21 11:24 92 H 93 11/28/21 11:23 96 H 135/74 11/28/21 11:18 102 H 97 11/28/21 11:13 90 96 11/28/21 11:08 92 H 134/76 97 11/28/21 11:00 18 11/28/21 11:00 18 11/28/21 11:03 89 95 11/28/21 10:58 91 H 95 11/28/21 10:53 91 H 135/81 96 11/28/21 10:48 91 H 96 11/28/21 10:43 90 97 11/28/21 10:40 88 131/81 11/28/21 10:38 91 H 96 11/28/21 10:30 18 11/28/21 10:30 18 11/28/21 10:33 95 H 97 11/28/21 10:28 93 H 96 11/28/21 10:24 88 132/75 11/28/21 10:23 90 97 11/28/21 10:18 92 H 97 11/28/21 10:15 113 H 93 11/28/21 10:13 97 H 97 11/28/21 10:10 91 H 137/74 11/28/21 10:08 95 H 97 11/28/21 10:09 96 H 124/80 11/28/21 10:03 100 H 97 11/28/21 10:01 102 H 11/28/21 10:01 109 H 136/81 91 11/28/21 09:58 95 H 96 11/28/21 09:53 94 H 96 11/28/21 09:48 97 H 96 11/28/21 09:43 94 H 96 11/28/21 09:30 18 11/28/21 09:30 37.4 C 18 11/28/21 09:38 106 H 97 11/28/21 09:33 97 H 96 11/28/21 09:28 98 H 96 11/28/21 09:23 95 H 96
--- NOTE | 2021-11-28 22:30 | Obstetrical Progress Note ---
Date of Service November 28, 2021 Assessment & Plan Admission and Anticipated Discharge Date Admission Date: November 28, 2021 Subjective Patient has just slept after it took a while to comfortable from Epidural bolus FHR categ I IUPC with ctxs q 2-3 min, 190-240 MVU, Oxytocin was just increased to 15 miu/min Continue to monitor closely Will evaluate in an hour. Results & Data ([facility]) Vital Signs (Past 12 Hours) Vital Signs Temp Pulse Resp BP Pulse Ox 11/28/21 22:27 101 H 144/93 H 11/28/21 22:23 102 H 96 11/28/21 22:18 102 H 96 11/28/21 22:13 101 H 97 11/28/21 22:11 103 H 153/89 H 11/28/21 22:08 101 H 98 11/28/21 22:03 99 H 98 11/28/21 21:58 99 H 100 11/28/21 21:57 101 H 148/87 H 11/28/21 21:53 99 H 98 11/28/21 21:48 104 H 97 11/28/21 21:47 106 H 86 L 11/28/21 21:43 112 H 98 11/28/21 21:41 111 H 132/80 11/28/21 21:38 99 H 98 11/28/21 21:33 109 H 99 11/28/21 21:28 104 H 97 11/28/21 21:26 96 H 146/87 H 11/28/21 21:23 104 H 97 11/28/21 21:18 127 H 98 11/28/21 21:13 115 H 97 11/28/21 21:08 100 H 96 11/28/21 21:05 100 H 150/89 H 11/28/21 21:03 100 H 96 11/28/21 21:02 103 H 88 L 11/28/21 21:01 97 H 148/87 H 11/28/21 20:58 98 H 97 11/28/21 20:56 99 H 141/82 H 11/28/21 20:53 98 H 98 11/28/21 20:54 96 H 141/84 H 11/28/21 20:48 120 H 98 11/28/21 20:43 104 H 96 11/28/21 20:38 94 H 139/77 96 11/28/21 20:33 99 H 96 09/15/22 20:28 107 H 94 11/28/21 20:23 92 11/28/21 20:23 99 H 11/28/21 20:23 97 H 148/80 H 84 L 11/28/21 20:18 101 H 95 11/28/21 20:13 103 H 96 11/28/21 20:08 105 H 140/93 96 11/28/21 20:03 102 H 92 11/28/21 19:58 106 H 94 11/28/21 19:53 100 H 95 11/28/21 19:54 107 H 130/74 11/28/21 19:48 108 H 97 11/28/21 19:43 99 H 95 11/28/21 19:38 97 H 130/69 96 11/28/21 19:33 97 H 95 11/28/21 19:28 102 H 95 11/28/21 19:23 95 11/28/21 19:23 113 H 11/28/21 19:23 111 H 142/85 H 11/28/21 19:05 36.8 C 11/28/21 19:18 102 H 93 11/28/21 19:13 100 H 94 11/28/21 19:08 101 H 146/81 H 95 11/28/21 19:03 96 H 95 11/28/21 18:58 101 H 94 11/28/21 18:53 104 H 93 11/28/21 18:54 97 H 140/84 11/28/21 18:48 116 H 96 11/28/21 18:43 96 H 95 11/28/21 18:38 104 H 141/83 H 95 11/28/21 18:33 96 H 95 11/28/21 18:28 98 H 95 11/28/21 18:23 95 11/28/21 18:23 98 H 11/28/21 18:23 96 H 150/91 H 11/28/21 18:18 108 H 95 11/28/21 18:13 100 H 96 11/28/21 18:00 36.8 C 11/28/21 18:08 94 H 135/81 96 11/28/21 18:03 95 H 97 11/28/21 17:58 97 H 96 11/28/21 17:53 96 H 133/74 95 11/28/21 17:48 98 H 96 11/28/21 17:43 94 H 94 11/28/21 17:30 18 11/28/21 17:30 36.9 C 18 11/28/21 17:39 87 131/77 11/28/21 17:38 90 95 11/28/21 17:33 95 H 95 11/28/21 17:28 101 H 96 11/28/21 17:24 96 H 133/86 11/28/21 17:23 95 H 96 11/28/21 17:18 105 H 96 11/28/21 17:00 16 11/28/21 17:00 16 11/28/21 17:13 94 H 95 11/28/21 17:08 95 11/28/21 17:08 100 H 11/28/21 17:08 103 H 129/65 11/28/21 17:03 101 H 94 11/28/21 16:58 96 H 95 11/28/21 16:30 18 11/28/21 16:30 18 11/28/21 16:54 96 H 144/84 H 11/28/21 16:53 94 H 94 11/28/21 16:48 98 H 96 11/28/21 16:43 100 H 95 11/28/21 16:38 98 H 95 11/28/21 16:39 99 H 139/80 11/28/21 16:33 103 H 94 11/28/21 16:28 98 H 94 11/28/21 16:23 98 H 134/94 94 11/28/21 16:18 104 H 94 11/28/21 16:13 109 H 96 11/28/21 16:10 96 H 143/91 H 11/28/21 16:08 99 H 95 11/28/21 16:03 104 H 96 11/28/21 16:00 18 11/28/21 16:00 18 11/28/21 15:58 98 H 97 11/28/21 15:30 18 11/28/21 15:30 37.4 C 18 11/28/21 15:53 105 H 141/91 H 96 11/28/21 15:48 104 H 96 11/28/21 15:43 97 H 97 11/28/21 15:38 94 H 94 11/28/21 15:39 98 H 140/86 11/28/21 15:33 89 95 11/28/21 15:28 105 H 95 11/28/21 15:23 101 H 95 11/28/21 15:24 102 H 131/70 11/28/21 15:18 89 95 11/28/21 15:00 18 11/28/21 15:00 18 11/28/21 15:13 92 H 95 11/28/21 15:09 92 H 141/90 H 11/28/21 15:08 91 H 96 11/28/21 15:03 97 H 96 11/28/21 14:58 99 H 96 11/28/21 14:53 96 11/28/21 14:53 97 H 11/28/21 14:53 98 H 134/81 11/28/21 14:48 93 H 96 11/28/21 14:43 106 H 95 11/28/21 14:39 103 H 144/89 H 11/28/21 14:38 100 H 95 11/28/21 14:33 94 H 96 11/28/21 14:30 18 11/28/21 14:30 18 11/28/21 14:00 18 11/28/21 14:00 18 11/28/21 14:28 102 H 96 11/28/21 14:23 96 H 95 11/28/21 14:24 95 H 134/87 11/28/21 14:18 98 H 95 11/28/21 14:13 97 H 96 11/28/21 14:09 99 H 141/92 H 11/28/21 14:08 103 H 94 11/28/21 14:03 98 H 96 11/28/21 13:58 112 H 96 11/28/21 13:53 95 11/28/21 13:53 92 H 11/28/21 13:53 91 H 126/68 11/28/21 13:48 90 94 11/28/21 13:43 92 H 93 11/28/21 13:39 96 H 139/78 11/28/21 13:38 95 H 94 11/28/21 13:30 18 11/28/21 13:30 18 11/28/21 13:00 18 11/28/21 13:00 37.5 C 18 11/28/21 13:33 92 H 94 11/28/21 13:28 94 H 94 11/28/21 13:23 95 H 95 11/28/21 13:24 94 H 131/77 11/28/21 13:18 92 H 95 11/28/21 13:13 97 H 97 11/28/21 13:09 93 H 128/73 11/28/21 13:08 98 H 95 11/28/21 13:03 96 H 95 11/28/21 12:58 100 H 95 11/28/21 12:53 95 11/28/21 12:53 106 H 11/28/21 12:53 93 H 132/76 11/28/21 12:48 95 H 95 11/28/21 12:43 99 H 95 11/28/21 12:38 96 H 133/76 97 11/28/21 12:30 18 11/28/21 12:30 18 11/28/21 12:33 96 H 95 11/28/21 12:34 97 H 92 11/28/21 12:28 97 H 98 11/28/21 12:24 96 H 129/74 11/28/21 12:23 98 H 97 11/28/21 12:00 18 11/28/21 12:00 18 11/28/21 12:18 95 H 98 11/28/21 12:15 108 H 94 11/28/21 12:13 95 H 96 11/28/21 12:08 106 H 132/73 97 11/28/21 12:03 101 H 97 11/28/21 11:58 112 H 96 11/28/21 11:56 107 H 92 11/28/21 11:53 106 H 96 11/28/21 11:54 105 H 140/83 11/28/21 11:50 110 H 90 11/28/21 11:48 110 H 96 11/28/21 11:43 93 H 96 11/28/21 11:38 92 H 137/86 96 11/28/21 11:30 18 11/28/21 11:30 36.9 C 18 11/28/21 11:33 95 H 97 11/28/21 11:28 88 96 11/28/21 11:23 95 11/28/21 11:23 91 H 11/28/21 11:24 92 H 93 11/28/21 11:23 96 H 135/74 11/28/21 11:18 102 H 97 11/28/21 11:13 90 96 11/28/21 11:08 92 H 134/76 97 11/28/21 11:00 18 11/28/21 11:00 18 11/28/21 11:03 89 95 11/28/21 10:58 91 H 95 11/28/21 10:53 91 H 135/81 96 11/28/21 10:48 91 H 96 11/28/21 10:43 90 97 11/28/21 10:40 88 131/81 11/28/21 10:38 91 H 96 11/28/21 10:30 18 11/28/21 10:30 18 11/28/21 10:33 95 H 97
[2021-11-28] MEDS ORDERED: AZITHROMYCIN 500 MG in DEXTROSE 5% 250 ML IV STA (23:42)
--- NOTE | 2021-11-28 23:47 | Obstetrical Progress Note ---
Date of Service November 28, 2021 Assessment & Plan Admission and Anticipated Discharge Date Admission Date: November 28, 2021 Subjective Patient is up and awake now. Feels pressure with contractions. Oxytocin was increased to 15 miu/min and stayed there due to adequate uterine contractions measured by IUPC for the last 2hours VE: Unchanged, 8/ 80%/ 0, ROP FHR categ I Discussed above, no cervical change since 18:30 pm despite AROM, adequate contractions, arrest of dilatation in active pahse of labor, suspected macrosomia Discussed continue with expectant management, IV oxytocin per protocol vs Ceser lazarus delivery Patient understands the risks of C section as a major surgery, with risks of bleeding , infection, injury to surrounding organs like bowels, bladder, ureters, adhesions, scarring, wound infection, blood cloths in legs/ lungs, longer recovery. She understands all and desires Csection. She signed an informed consent. All questions were answered. Results & Data ([facility]) Vital Signs (Past 12 Hours) Vital Signs Temp Pulse Resp BP Pulse Ox 11/28/21 23:41 122 H 141/86 H 11/28/21 23:38 119 H 92 11/28/21 23:33 115 H 94 11/28/21 23:28 108 H 94 11/28/21 23:26 109 H 138/82 11/28/21 23:23 104 H 94 11/28/21 23:18 107 H 94 11/28/21 23:13 107 H 94 11/28/21 23:11 113 H 144/84 H 11/28/21 23:08 104 H 93 11/28/21 23:03 106 H 93 11/28/21 22:58 105 H 92 11/28/21 22:56 105 H 149/85 H 11/28/21 22:53 106 H 92 11/28/21 22:48 105 H 92 11/28/21 22:43 104 H 93 11/28/21 22:41 104 H 142/87 H 11/28/21 22:38 104 H 93 11/28/21 22:33 102 H 94 11/28/21 22:28 102 H 95 11/28/21 22:27 101 H 144/93 H 11/28/21 22:23 102 H 96 11/28/21 22:18 102 H 96 11/28/21 22:13 101 H 97 11/28/21 22:11 103 H 153/89 H 11/28/21 22:08 101 H 98 11/28/21 22:03 99 H 98 11/28/21 21:58 99 H 100 11/28/21 21:57 101 H 148/87 H 11/28/21 21:53 99 H 98 11/28/21 21:48 104 H 97 11/28/21 21:47 106 H 86 L 11/28/21 21:43 112 H 98 11/28/21 21:41 111 H 132/80 11/28/21 21:38 99 H 98 11/28/21 21:33 109 H 99 11/28/21 21:28 104 H 97 11/28/21 21:26 96 H 146/87 H 11/28/21 21:23 104 H 97 11/28/21 21:18 127 H 98 11/28/21 21:13 115 H 97 11/28/21 21:08 100 H 96 11/28/21 21:05 100 H 150/89 H 11/28/21 21:03 100 H 96 11/28/21 21:02 103 H 88 L 11/28/21 21:01 97 H 148/87 H 11/28/21 20:58 98 H 97 11/28/21 20:56 99 H 141/82 H 11/28/21 20:53 98 H 98 11/28/21 20:54 96 H 141/84 H 11/28/21 20:48 120 H 98 11/28/21 20:43 104 H 96 11/28/21 20:38 94 H 139/77 96 11/28/21 20:33 99 H 96 11/28/21 20:28 107 H 94 11/28/21 20:23 92 11/28/21 20:23 99 H 11/28/21 20:23 97 H 148/80 H 84 L 11/28/21 20:18 101 H 95 11/28/21 20:13 103 H 96 11/28/21 20:08 105 H 140/93 96 11/28/21 20:03 102 H 92 11/28/21 19:58 106 H 94 11/28/21 19:53 100 H 95 11/28/21 19:54 107 H 130/74 11/28/21 19:48 108 H 97 11/28/21 19:43 99 H 95 11/28/21 19:38 97 H 130/69 96 11/28/21 19:33 97 H 95 11/28/21 19:28 102 H 95 11/28/21 19:23 95 11/28/21 19:23 113 H 11/28/21 19:23 111 H 142/85 H 11/28/21 19:05 36.8 C 11/28/21 19:18 102 H 93 11/28/21 19:13 100 H 94 11/28/21 19:08 101 H 146/81 H 95 11/28/21 19:03 96 H 95 11/28/21 18:58 101 H 94 11/28/21 18:53 104 H 93 11/28/21 18:54 97 H 140/84 11/28/21 18:48 116 H 96 11/28/21 18:43 96 H 95 11/28/21 18:38 104 H 141/83 H 95 11/28/21 18:33 96 H 95 11/28/21 18:28 98 H 95 11/28/21 18:23 95 11/28/21 18:23 98 H 11/28/21 18:23 96 H 150/91 H 11/28/21 18:18 108 H 95 11/28/21 18:13 100 H 96 11/28/21 18:00 36.8 C 11/28/21 18:08 94 H 135/81 96 11/28/21 18:03 95 H 97 11/28/21 17:58 97 H 96 11/28/21 17:53 96 H 133/74 95 11/28/21 17:48 98 H 96 11/28/21 17:43 94 H 94 11/28/21 17:30 18 11/28/21 17:30 36.9 C 18 11/28/21 17:39 87 131/77 11/28/21 17:38 90 95 11/28/21 17:33 95 H 95 11/28/21 17:28 101 H 96 11/28/21 17:24 96 H 133/86 11/28/21 17:23 95 H 96 11/28/21 17:18 105 H 96 11/28/21 17:00 16 11/28/21 17:00 16 11/28/21 17:13 94 H 95 11/28/21 17:08 95 11/28/21 17:08 100 H 11/28/21 17:08 103 H 129/65 11/28/21 17:03 101 H 94 11/28/21 16:58 96 H 95 11/28/21 16:30 18 11/28/21 16:30 18 11/28/21 16:54 96 H 144/84 H 11/28/21 16:53 94 H 94 11/28/21 16:48 98 H 96 11/28/21 16:43 100 H 95 11/28/21 16:38 98 H 95 11/28/21 16:39 99 H 139/80 11/28/21 16:33 103 H 94 11/28/21 16:28 98 H 94 11/28/21 16:23 98 H 134/94 94 11/28/21 16:18 104 H 94 11/28/21 16:13 109 H 96 11/28/21 16:10 96 H 143/91 H 11/28/21 16:08 99 H 95 11/28/21 16:03 104 H 96 11/28/21 16:00 18 11/28/21 16:00 18 11/28/21 15:58 98 H 97 11/28/21 15:30 18 11/28/21 15:30 37.4 C 18 11/28/21 15:53 105 H 141/91 H 96 11/28/21 15:48 104 H 96 11/28/21 15:43 97 H 97 11/28/21 15:38 94 H 94 11/28/21 15:39 98 H 140/86 11/28/21 15:33 89 95 11/28/21 15:28 105 H 95 11/28/21 15:23 101 H 95 11/28/21 15:24 102 H 131/70 11/28/21 15:18 89 95 11/28/21 15:00 18 11/28/21 15:00 18 11/28/21 15:13 92 H 95 11/28/21 15:09 92 H 141/90 H 11/28/21 15:08 91 H 96 11/28/21 15:03 97 H 96 11/28/21 14:58 99 H 96 11/28/21 14:53 96 11/28/21 14:53 97 H 11/28/21 14:53 98 H 134/81 11/28/21 14:48 93 H 96 11/28/21 14:43 106 H 95 11/28/21 14:39 103 H 144/89 H 11/28/21 14:38 100 H 95 11/28/21 14:33 94 H 96 11/28/21 14:30 18 11/28/21 14:30 18 11/28/21 14:00 18 11/28/21 14:00 18 11/28/21 14:28 102 H 96 11/28/21 14:23 96 H 95 11/28/21 14:24 95 H 134/87 11/28/21 14:18 98 H 95 11/28/21 14:13 97 H 96 11/28/21 14:09 99 H 141/92 H 11/28/21 14:08 103 H 94 11/28/21 14:03 98 H 96 11/28/21 13:58 112 H 96 11/28/21 13:53 95 11/28/21 13:53 92 H 11/28/21 13:53 91 H 126/68 11/28/21 13:48 90 94 11/28/21 13:43 92 H 93 11/28/21 13:39 96 H 139/78 11/28/21 13:38 95 H 94 11/28/21 13:30 18 11/28/21 13:30 18 11/28/21 13:00 18 11/28/21 13:00 37.5 C 18 11/28/21 13:33 92 H 94 11/28/21 13:28 94 H 94 11/28/21 13:23 95 H 95 11/28/21 13:24 94 H 131/77 11/28/21 13:18 92 H 95 11/28/21 13:13 97 H 97 11/28/21 13:09 93 H 128/73 11/28/21 13:08 98 H 95 11/28/21 13:03 96 H 95 11/28/21 12:58 100 H 95 11/28/21 12:53 95 11/28/21 12:53 106 H 11/28/21 12:53 93 H 132/76 11/28/21 12:48 95 H 95 11/28/21 12:43 99 H 95 11/28/21 12:38 96 H 133/76 97 11/28/21 12:30 18 11/28/21 12:30 18 11/28/21 12:33 96 H 95 11/28/21 12:34 97 H 92 11/28/21 12:28 97 H 98 11/28/21 12:24 96 H 129/74 11/28/21 12:23 98 H 97 11/28/21 12:00 18 11/28/21 12:00 18 11/28/21 12:18 95 H 98 11/28/21 12:15 108 H 94 11/28/21 12:13 95 H 96 11/28/21 12:08 106 H 132/73 97 11/28/21 12:03 101 H 97 11/28/21 11:58 112 H 96 11/28/21 11:56 107 H 92 11/28/21 11:53 106 H 96 11/28/21 11:54 105 H 140/83 11/28/21 11:50 110 H 90 11/28/21 11:48 110 H 96
[2021-11-29] MEDS ORDERED: CITRIC ACID/SODIUM CITRATE 15 ML UDC PO SCH
[2021-11-29] MEDS ORDERED: ceFAZolin 2000MG 2,000 MG/15 ML SYR IV SCH
[2021-11-29 00:17] LABS: Basophils # (auto) 0.02 K/uL (0-0.2); Basophils % (auto) 0.1 %; Eosinophils # (auto) 0.01 K/uL (0-0.50); Eosinophils % (auto) 0.1 %; Hematocrit (blood only) 35.5 % (34.1-44.9); Hemoglobin 12.1 g/dl (12.0-16.0); Immature Granulocytes % (auto) 0.6 %; Lymphocytes # (auto) 0.96 K/uL (1.2-3.4); Lymphocytes % (auto) 5.7 %; Mean Corpuscular Hemoglobin 28.2 pg (25.0-34.0); Mean Corpuscular Hgb Conc 34.1 g/dL (32.0-36.0); Mean Corpuscular Volume 82.8 fL (80.0-100.0); Mean Platelet Volume 10.6 fL (9.4-12.3); Monocytes # (auto) 1.01 K/uL (0.24-0.82); Neutrophils # (auto) 14.71 K/uL (1.4-6.5); Neutrophils % (auto) 87.5 %; Platelet Count 162 K/uL (130-400); RDW Standard Deviation 38.8 fL (36.4-46.3); Red Blood Count 4.29 M/uL (3.93-5.22); White Blood Count 16.81 K/ul (4.8-10.8)
[2021-11-29] MEDS ORDERED: OXYTOCIN 10 UNITS/ML 10ML VIAL ONE (00:17)
[2021-11-29] MEDS ORDERED: MoRPHine SULFATE PF 1 MG/ML 10 ML AMP/VIAL ONE (00:17)
[2021-11-29] MEDS ORDERED: LIDOCAINE 2%/EPINEPHRINE 1:200,000 20 ML SDV ONE (00:17)
[2021-11-29] MEDS ORDERED: KETOROLAC 30 MG/ML VIAL ONE (00:17)
[2021-11-29] MEDS ORDERED: ONDANSETRON INJ 2 MG/ML 2 ML VIAL ONE (00:17)
[2021-11-29 00:37] LABS: Alanine Aminotransferase 20 U/L (7-52); Albumin Globulin Ratio 1.1 (0.9-2); Albumin Level 3.2 gm/dl (3.4-5.0); Alkaline Phosphatase 171 U/L (34-104); Anion Gap 9 (3-11); Aspartate Aminotransferase 32 U/L (13-39); BUN Creatinine Ratio 7.3 (10-20); Bilirubin,Total 0.8 mg/dl (0.2-1.0); Blood Urea Nitrogen 4 mg/dl (6-23); Calcium 8.4 mg/dl (8.5-10.1); Carbon Dioxide 23 mmol/L (21-32); Chloride 102 mmol/L (98-107); Creatinine Clr Calc Pharmacy 160.7 ml/min; Est GFR (African American) > 150.0 ml/min; Est GFR (Non-African American) 129.5 ml/min; Globulin 2.9 gm/dl (2.5-4.0); Glucose 75 mg/dl (70-99(Fasting)); Potassium 2.8 mmol/L (3.5-5.1); Sodium 134 mmol/L (136-145); Total Protein 6.1 gm/dl (6.0-8.3)
[2021-11-29] MEDS ORDERED: fentaNYL citrate 100 MCG/2 ML VIAL ONE (00:42)
[2021-11-29] MEDS ORDERED: OXYTOCIN 10 UNITS/ML VIAL ONE (01:01)
[2021-11-29] MEDS ORDERED: PHENYLEPHRINE HCL 10 MG/ML VIAL ONE (01:43)
[2021-11-29] MEDS ORDERED: DIPHTHERIA/TETANUS/PERTUSSIS 0.5 ML SYR/VIAL IM ONE (02:09)
[2021-11-29] MEDS ORDERED: HYDROCORTISONE ACETATE 25 MG SUPP PR PRN (02:09)
[2021-11-29] MEDS ORDERED: MEPERIDINE HCL 50 MG/ML CARP IV PRN (02:09)
[2021-11-29] MEDS ORDERED: MAGNESIUM HYDROXIDE SUSP 30 ML UDC PO PRN (02:09)
[2021-11-29] MEDS ORDERED: SENNA 8.6 MG TAB PO PRN (02:09)
[2021-11-29] MEDS ORDERED: BENZOCAINE 20% AER SPR 82.5 GM CAN EXT PRN (02:09)
[2021-11-29] MEDS ORDERED: MEASLES, MUMPS & RUBELLA VIRUS VIAL SQ ONE (02:09)
--- NOTE | 2021-11-29 02:09 | Anesthesiology Progress Note ---
Date of Service November 29, 2021 Anesthesia Post Procedure Vital Signs Vital Signs: Temp Pulse Resp BP Pulse Ox 11/28/21 07:10 36.9 C 18 11/29/21 02:05 93 H 91/54 L 11/29/21 02:03 106 H 100 11/29/21 00:18 114 H 95 11/29/21 00:13 117 H 95 11/29/21 00:11 111 H 154/93 H 11/29/21 00:08 112 H 94 11/29/21 00:03 118 H 94 11/28/21 23:58 117 H 94 11/28/21 23:56 118 H 142/92 H 11/28/21 23:53 117 H 95 11/28/21 23:48 122 H 93 11/28/21 23:43 121 H 94 11/28/21 23:41 122 H 141/86 H 11/28/21 23:38 119 H 92 11/28/21 23:33 115 H 94 11/28/21 23:28 108 H 94 11/28/21 23:26 109 H 138/82 11/28/21 23:23 104 H 94 11/28/21 23:18 107 H 94 11/28/21 23:13 107 H 94 11/28/21 23:11 113 H 144/84 H 11/28/21 23:08 104 H 93 11/28/21 23:03 106 H 93 11/28/21 22:58 105 H 92 11/28/21 22:56 105 H 149/85 H 11/28/21 22:53 106 H 92 11/28/21 22:48 105 H 92 11/28/21 22:43 104 H 93 11/28/21 22:41 104 H 142/87 H 11/28/21 22:38 104 H 93 11/28/21 22:33 102 H 94 11/28/21 22:28 102 H 95 11/28/21 22:27 101 H 144/93 H 11/28/21 22:23 102 H 96 11/28/21 22:18 102 H 96 11/28/21 22:13 101 H 97 11/28/21 22:11 103 H 153/89 H 11/28/21 22:08 101 H 98 11/28/21 22:03 99 H 98 11/28/21 21:58 99 H 100 11/28/21 21:57 101 H 148/87 H 11/28/21 21:53 99 H 98 11/28/21 21:48 104 H 97 11/28/21 21:47 106 H 86 L 11/28/21 21:43 112 H 98 11/28/21 21:41 111 H 132/80 11/28/21 21:38 99 H 98 11/28/21 21:33 109 H 99 11/28/21 21:28 104 H 97 11/28/21 21:26 96 H 146/87 H 11/28/21 21:23 104 H 97 11/28/21 21:18 127 H 98 11/28/21 21:13 115 H 97 11/28/21 21:08 100 H 96 11/28/21 21:05 100 H 150/89 H 11/28/21 21:03 100 H 96 11/28/21 21:02 103 H 88 L 11/28/21 21:01 97 H 148/87 H 11/28/21 20:58 98 H 97 11/28/21 20:56 99 H 141/82 H 11/28/21 20:53 98 H 98 11/28/21 20:54 96 H 141/84 H 11/28/21 20:48 120 H 98 11/28/21 20:43 104 H 96 11/28/21 20:38 94 H 139/77 96 11/28/21 20:33 99 H 96 11/28/21 20:28 107 H 94 11/28/21 20:23 92 11/28/21 20:23 99 H 11/28/21 20:23 97 H 148/80 H 84 L 11/28/21 20:18 101 H 95 11/28/21 20:13 103 H 96 11/28/21 20:08 105 H 140/93 96 11/28/21 20:03 102 H 92 11/28/21 19:58 106 H 94 11/28/21 19:53 100 H 95 11/28/21 19:54 107 H 130/74 11/28/21 19:48 108 H 97 11/28/21 19:43 99 H 95 11/28/21 19:38 97 H 130/69 96 11/28/21 19:33 97 H 95 11/28/21 19:28 102 H 95 11/28/21 19:23 95 11/28/21 19:23 113 H 11/28/21 19:23 111 H 142/85 H 11/28/21 19:05 36.8 C 11/28/21 19:18 102 H 93 11/28/21 19:13 100 H 94 11/28/21 19:08 101 H 146/81 H 95 11/28/21 19:03 96 H 95 11/28/21 18:58 101 H 94 11/28/21 18:53 104 H 93 11/28/21 18:54 97 H 140/84 11/28/21 18:48 116 H 96 11/28/21 18:43 96 H 95 11/28/21 18:38 104 H 141/83 H 95 11/28/21 18:33 96 H 95 11/28/21 18:28 98 H 95 11/28/21 18:23 95 11/28/21 18:23 98 H 11/28/21 18:23 96 H 150/91 H 11/28/21 18:18 108 H 95 11/28/21 18:13 100 H 96 11/28/21 18:00 36.8 C 11/28/21 18:08 94 H 135/81 96 11/28/21 18:03 95 H 97 11/28/21 17:58 97 H 96 11/28/21 17:53 96 H 133/74 95 11/28/21 17:48 98 H 96 11/28/21 17:43 94 H 94 11/28/21 17:30 18 11/28/21 17:30 36.9 C 18 11/28/21 17:39 87 131/77 11/28/21 17:38 90 95 11/28/21 17:33 95 H 95 11/28/21 17:28 101 H 96 11/28/21 17:24 96 H 133/86 11/28/21 17:23 95 H 96 11/28/21 17:18 105 H 96 11/28/21 17:00 16 11/28/21 17:00 16 11/28/21 17:13 94 H 95 11/28/21 17:08 95 11/28/21 17:08 100 H 11/28/21 17:08 103 H 129/65 11/28/21 17:03 101 H 94 11/28/21 16:58 96 H 95 11/28/21 16:30 18 11/28/21 16:30 18 11/28/21 16:54 96 H 144/84 H 11/28/21 16:53 94 H 94 11/28/21 16:48 98 H 96 11/28/21 16:43 100 H 95 11/28/21 16:38 98 H 95 11/28/21 16:39 99 H 139/80 11/28/21 16:33 103 H 94 11/28/21 16:28 98 H 94 11/28/21 16:23 98 H 134/94 94 11/28/21 16:18 104 H 94 11/28/21 16:13 109 H 96 11/28/21 16:10 96 H 143/91 H 11/28/21 16:08 99 H 95 11/28/21 16:03 104 H 96 11/28/21 16:00 18 11/28/21 16:00 18 11/28/21 15:58 98 H 97 11/28/21 15:30 18 11/28/21 15:30 37.4 C 18 11/28/21 15:53 105 H 141/91 H 96 11/28/21 15:48 104 H 96 11/28/21 15:43 97 H 97 11/28/21 15:38 94 H 94 11/28/21 15:39 98 H 140/86 11/28/21 15:33 89 95 11/28/21 15:28 105 H 95 11/28/21 15:23 101 H 95 11/28/21 15:24 102 H 131/70 11/28/21 15:18 89 95 11/28/21 15:00 18 11/28/21 15:00 18 11/28/21 15:13 92 H 95 11/28/21 15:09 92 H 141/90 H 11/28/21 15:08 91 H 96 11/28/21 15:03 97 H 96 11/28/21 14:58 99 H 96 11/28/21 14:53 96 11/28/21 14:53 97 H 11/28/21 14:53 98 H 134/81 11/28/21 14:48 93 H 96 11/28/21 14:43 106 H 95 11/28/21 14:39 103 H 144/89 H 11/28/21 14:38 100 H 95 11/28/21 14:33 94 H 96 11/28/21 14:30 18 11/28/21 14:30 18 11/28/21 14:00 18 11/28/21 14:00 18 11/28/21 14:28 102 H 96 11/28/21 14:23 96 H 95 11/28/21 14:24 95 H 134/87 11/28/21 14:18 98 H 95 11/28/21 14:13 97 H 96 11/28/21 14:09 99 H 141/92 H 11/28/21 14:08 103 H 94 11/28/21 14:03 98 H 96 11/28/21 13:58 112 H 96 11/28/21 13:53 95 11/28/21 13:53 92 H 11/28/21 13:53 91 H 126/68 11/28/21 13:48 90 94 11/28/21 13:43 92 H 93 11/28/21 13:39 96 H 139/78 11/28/21 13:38 95 H 94 11/28/21 13:30 18 11/28/21 13:30 18 11/28/21 13:00 18 11/28/21 13:00 37.5 C 18 11/28/21 13:33 92 H 94 11/28/21 13:28 94 H 94 11/28/21 13:23 95 H 95 11/28/21 13:24 94 H 131/77 11/28/21 13:18 92 H 95 11/28/21 13:13 97 H 97 11/28/21 13:09 93 H 128/73 11/28/21 13:08 98 H 95 11/28/21 13:03 96 H 95 11/28/21 12:58 100 H 95 11/28/21 12:53 95 11/28/21 12:53 106 H 11/28/21 12:53 93 H 132/76 11/28/21 12:48 95 H 95 11/28/21 12:43 99 H 95 11/28/21 12:38 96 H 133/76 97 11/28/21 12:30 18 11/28/21 12:30 18 11/28/21 12:33 96 H 95 11/28/21 12:34 97 H 92 11/28/21 12:28 97 H 98 11/28/21 12:24 96 H 129/74 11/28/21 12:23 98 H 97 11/28/21 12:00 18 11/28/21 12:00 18 11/28/21 12:18 95 H 98 11/28/21 12:15 108 H 94 11/28/21 12:13 95 H 96 11/28/21 12:08 106 H 132/73 97 11/28/21 12:03 101 H 97 11/28/21 11:58 112 H 96 11/28/21 11:56 107 H 92 11/28/21 11:53 106 H 96 11/28/21 11:54 105 H 140/83 11/28/21 11:50 110 H 90 11/28/21 11:48 110 H 96 11/28/21 11:43 93 H 96 11/28/21 11:38 92 H 137/86 96 11/28/21 11:30 18 11/28/21 11:30 36.9 C 18 11/28/21 11:33 95 H 97 11/28/21 11:28 88 96 11/28/21 11:23 95 11/28/21 11:23 91 H 11/28/21 11:24 92 H 93 11/28/21 11:23 96 H 135/74 11/28/21 11:18 102 H 97 11/28/21 11:13 90 96 11/28/21 11:08 92 H 134/76 97 11/28/21 11:00 18 11/28/21 11:00 18 11/28/21 11:03 89 95 11/28/21 10:58 91 H 95 11/28/21 10:53 91 H 135/81 96 11/28/21 10:48 91 H 96 11/28/21 10:43 90 97 11/28/21 10:40 88 131/81 11/28/21 10:38 91 H 96 11/28/21 10:30 18 11/28/21 10:30 18 11/28/21 10:33 95 H 97 11/28/21 10:28 93 H 96 11/28/21 10:24 88 132/75 11/28/21 10:23 90 97 11/28/21 10:18 92 H 97 11/28/21 10:15 113 H 93 11/28/21 10:13 97 H 97 11/28/21 10:10 91 H 137/74 11/28/21 10:08 95 H 97 11/28/21 10:09 96 H 124/80 11/28/21 10:03 100 H 97 11/28/21 10:01 102 H 11/28/21 10:01 109 H 136/81 91 11/28/21 09:58 95 H 96 11/28/21 09:53 94 H 96 11/28/21 09:48 97 H 96 11/28/21 09:43 94 H 96 11/28/21 09:30 18 11/28/21 09:30 37.4 C 18 11/28/21 09:38 106 H 97 11/28/21 09:33 97 H 96 11/28/21 09:28 98 H 96 11/28/21 09:23 95 H 96 11/28/21 09:18 102 H 97 11/28/21 09:13 96 H 97 11/28/21 09:08 93 H 96 11/28/21 09:09 99 H 94 11/28/21 09:01 18 11/28/21 09:01 18 11/28/21 09:03 115 H 98 11/28/21 09:00 101 H 93 11/28/21 08:58 101 H 96 11/28/21 08:53 107 H 130/71 97 11/28/21 08:48 97 H 97 11/28/21 08:43 96 H 95 11/28/21 08:41 94 H 94 11/28/21 08:38 97 11/28/21 08:38 101 H 11/28/21 08:38 93 H 129/69 11/28/21 08:33 98 H 97 11/28/21 08:28 96 11/28/21 08:28 99 H 11/28/21 08:28 95 H 94 11/28/21 08:23 92 H 120/64 97 11/28/21 08:18 103 H 97 11/28/21 08:13 100 H 97 11/28/21 08:14 108 H 91 11/28/21 08:08 96 11/28/21 08:08 100 H 11/28/21 08:08 109 H 139/86 11/28/21 08:00 18 09/15/22 08:00 18 11/28/21 08:03 97 H 97 11/28/21 07:58 94 H 96 11/28/21 07:30 18 11/28/21 07:30 18 11/28/21 07:53 100 H 136/84 98 11/28/21 07:48 107 H 97 11/28/21 07:43 104 H 100 11/28/21 07:38 97 11/28/21 07:38 98 H 11/28/21 07:38 101 H 137/81 11/28/21 07:36 109 H 93 11/28/21 07:33 103 H 98 11/28/21 07:32 103 H 133/76 11/28/21 07:28 93 H 97 11/28/21 07:23 111 H 96 11/28/21 07:22 108 H 92 11/28/21 07:18 97 H 96 11/28/21 07:05 95 H 96 11/28/21 07:00 105 H 96 11/28/21 06:55 95 H 95 11/28/21 06:50 94 H 96 11/28/21 06:45 100 H 96 11/28/21 06:41 91 H 122/67 11/28/21 06:40 94 H 97 11/28/21 06:35 96 H 97 11/28/21 06:30 97 H 97 11/28/21 06:25 93 H 98 11/28/21 06:20 36.8 C 94 H 18 96 11/28/21 06:15 95 H 98 11/28/21 06:10 98 H 135/76 98 11/28/21 06:05 97 H 97 11/28/21 06:00 108 H 96 11/28/21 05:55 100 H 98 11/28/21 05:56 98 H 135/80 11/28/21 05:50 97 H 97 11/28/21 05:45 99 H 97 11/28/21 05:43 96 H 90 11/28/21 05:40 98 H 131/71 97 11/28/21 05:35 93 H 97 11/28/21 05:30 100 H 96 11/28/21 05:27 104 H 93 11/28/21 05:25 102 H 129/67 96 11/28/21 05:20 96 11/28/21 05:20 96 H 11/28/21 05:20 105 H 93 11/28/21 05:15 97 H 97 11/28/21 05:14 99 H 94 11/28/21 05:10 106 H 128/67 96 11/28/21 05:05 100 H 95 11/28/21 05:02 103 H 94 11/28/21 05:00 100 H 96 11/28/21 04:55 103 H 129/69 95 11/28/21 04:50 95 H 95 11/28/21 04:45 99 H 95 11/28/21 04:40 95 11/28/21 04:40 96 H 11/28/21 04:40 99 H 139/76 94 11/28/21 04:35 97 H 96 11/28/21 04:30 36.8 C 97 H 97 11/28/21 04:27 110 H 137/69 11/28/21 04:25 106 H 96 11/28/21 04:20 102 H 97 11/28/21 04:15 102 H 96 11/28/21 04:10 104 H 144/87 H 96 11/28/21 04:05 98 H 97 11/28/21 04:00 96 H 97 11/28/21 03:56 94 H 136/84 11/28/21 03:55 95 H 97 11/28/21 03:50 97 H 98 11/28/21 03:45 94 H 98 11/28/21 03:40 97 11/28/21 03:40 103 H 11/28/21 03:40 106 H 141/94 H 93 11/28/21 03:35 94 H 98 11/28/21 03:20 18 11/28/21 03:20 18 11/28/21 03:30 96 H 97 11/28/21 03:25 92 H 98 11/28/21 03:23 101 H 143/96 H 11/28/21 03:20 98 11/28/21 03:20 90 11/28/21 03:20 91 H 141/94 H 11/28/21 03:17 94 H 146/98 H 11/28/21 03:15 99 H 98 11/28/21 03:14 93 H 151/98 H 11/28/21 03:10 100 H 98 11/28/21 03:11 93 H 149/96 H 93 11/28/21 03:08 95 H 143/96 H 11/28/21 03:05 98 11/28/21 03:05 92 H 11/28/21 03:05 90 18 153/98 H 11/28/21 03:02 94 H 150/97 H 11/28/21 03:00 95 H 98 11/28/21 02:59 101 H 18 147/96 H 11/28/21 02:56 90 20 148/97 H 11/28/21 02:55 94 H 97 11/28/21 02:53 100 H 150/99 H 11/28/21 02:50 97 H 144/97 H 97 11/28/21 02:45 102 H 98 11/28/21 02:40 98 H 95 11/28/21 02:30 90 140/95 Pain Intensity Abdomen: Pain Intensity: 9 Transfer of Care Handoff Completed per policy Notes Mental Status: alert / awake / arousable Nausea / Vomiting: adequately controlled Pain: adequately controlled Airway Patency, RR, SpO2: stable & adequate BP & HR: stable & adequate Hydration State: stable & adequate Neuraxial Anesthesia: was administered and sensory block is resolving Anesthetic Complications: no major complications apparent and Pt Satisfied with anesthetic care
--- NOTE | 2021-11-29 02:10 | Anesthesia Procedure Note ---
Date of Service November 29, 2021 Anesthesia Post Epidural Note Vital Signs Vital Signs: Temp Pulse Resp BP Pulse Ox 36.8 C 93 H 18 91/54 L 99 11/28/21 19:05 11/29/21 02:08 11/28/21 17:30 11/29/21 02:05 11/29/21 02:08 Pain Intensity Abdomen: Pain Intensity: 9 Notes Mental Status: alert / awake / arousable Nausea / Vomiting: adequately controlled Pain: adequately controlled Airway Patency, RR, SpO2: stable & adequate BP & HR: stable & adequate Hydration State: stable & adequate Neuraxial Anesthesia: was administered and sensory block is resolving Anesthetic Complications: no major complications apparent and Pt Satisfied with anesthetic care Epidural: Removed without complications and With tip intact
--- NOTE | 2021-11-29 02:15 | Post Operative Brief Note ---
Immediate Post Op Note v1 Date of Surgery November 29, 2021 Pre & Post Diagnosis Operation Date: 11/29/21 00:20 Pre-Op Diagnosis: Arrest of dilation in active stage of labor Post-Op Diagnosis: Same I identified the patient and participated in the time-out.: Yes Procedure Operation Date: 11/29/21 00:20 Actual Procedures p Section in LD for [facility] at 0047(Bilateral) - Jacobo Patel MD Surgeon Jacobo Patel MD Savings Teller NILESH Cruz Estimated Blood Loss 600 Findings Consistent with Post-Op Diagnosis Drains Cai Catheter (Cai placed prior to being brought to OR. Draining clear yellow urine. To be monitored during procedure by anesthesia ) Anesthesia Type Labor Epidural Complications none
[2021-11-29] MEDS ORDERED: PROMETHAZINE HCL 6.25 MG in SODIUM CHLORIDE 0.9% 50 ML IV PRN (02:21)
[2021-11-29] MEDS ORDERED: MoRPHine SULFATE 2 MG/ML CARP IV PRN ×2 (02:21→20:22)
[2021-11-29] MEDS ORDERED: NALOXONE HCL 1 MG in SODIUM CHLORIDE 0.9% 1000ML 1,000 ML IV PRN (02:21)
[2021-11-29] MEDS ORDERED: HYDROmorphone INJ 0.5 MG/0.5 ML SYR IV PRN (02:21)
[2021-11-29] MEDS ORDERED: LACTATED RINGER'S 500 ML IV PRN (02:21)
[2021-11-29] MEDS ORDERED: MoRPHine SULFATE PF 1 MG/ML 10 ML AMP/VIAL INT SPINAL ONE (02:21)
[2021-11-29] MEDS ORDERED: NALOXONE HCL 0.4 MG/1 ML VIAL/CARP IV PRN (02:21)
[2021-11-29] MEDS ORDERED: NALOXONE HCL 0.08 MG in SYRINGE 1.8 ML IV PRN (02:21)
[2021-11-29] MEDS ORDERED: NALBUPHINE HCL INJ 10 MG/ML AMP IV PRN (02:21)
[2021-11-29] MEDS ORDERED: ONDANSETRON INJ 2 MG/ML 2 ML VIAL IV PRN ×2 (02:21→20:22)
[2021-11-29] MEDS ORDERED: ePHEDrine sulfate 50 MG/ML AMP IV PRN (02:21)
[2021-11-29] MEDS ORDERED: MEPERIDINE HCL 25 MG/ML CARP/VIAL IV PRN (02:21)
[2021-11-29] MEDS ORDERED: diphenhydrAMINE 50 MG/ML VIAL IV PRN ×2 (02:21→20:22)
[2021-11-29] MEDS ORDERED: DC INTRASPINAL MORPHINE SCH (02:30)
[2021-11-29] MEDS ORDERED: NO NARCOTICS OR SEDATIVES SCH (02:30)
[2021-11-29] MEDS ORDERED: SODIUM CHLORIDE 0.9% 1000ML 1,000 ML IV SCH (02:30)
[2021-11-29] MEDS: OXYTOCIN 20 UNITS in LACTATED RINGER'S 1,000 ML IV SCH ×2 (03:58→13:00)
--- NOTE | 2021-11-29 07:39 | Operative Report (OR) ---
DATE OF SURGERY: 11/29/2021. PREOPERATIVE DIAGNOSES: The patient is a 26-year-old G1, P0 at 38 weeks and 5 days of gestation, Failure to progress and arrest of dilatation in active phase of labor despite uterine contractions Suspected LGA (large for gestational age). POSTOPERATIVE DIAGNOSES: The patient is a 26-year-old G1, P0 at 38 weeks and 5 days of gestation, Failure to progress and arrest of dilatation in active phase of labor despite uterine contractions Suspected LGA (large for gestational age). PROCEDURE: Primary low transverse with Pfannenstiel skin incision. SURGEON: Jacobo Patel MD. OPERATIONS ADVISOR: NILESH Cruz. ESTIMATED BLOOD LOSS: 600 mL. DRAINS: Cai drained 300 mL of clear urine. ANESTHESIA: Labor epidural. ANESTHESIOLOGIST: Dr. Flanagan. COMPLICATIONS: None. FINDINGS: Baby was a viable male , delivered in cephalic presentation at 0047 a.m. Apgars were 7/9, weight was 4038 grams. MATERNAL FINDINGS: Normal uterus, fallopian tubes, and ovaries. DESCRIPTION OF PROCEDURE: The patient is a 26-year-old G1, P0 at 38 weeks and 5 days of gestation, who presented to labor and delivery on 11/27 with contractions and admitted for labor. She SROM'd at 4:30 a.m. on 11/28/2021 and then started on IV oxytocin. AROM was done for bulging forebag at 18:30. Failure to progress and arrest of dilatation in active phase of labor despite uterine contractions documented by [facility] Suspected LGA (large for gestational age). The patient was taken to the operating room where epidural anesthesia was found to be adequate. She was prepared and draped in the usual sterile fashion. A Pfannenstiel skin incision was made and carried through to the underlying layer of fascia with the Bovie. Fascia was incised in the midline and incision was extended laterally with the help of Vargas scissors. Lower aspect of the fascial incision was then grasped with 2 Nabor clamps, elevated. Underlying rectus muscles were dissected sharply with Vargas scissors. Same thing was done on the upper aspect of the incision, which was also dissected from rectus muscles sharply. The rectus muscles were in the midline and the peritoneum was entered bluntly with fingers. Peritoneal incision was extended superiorly and inferiorly with good visualization of the bladder and then Geraldo abdominal retractor was placed to retract abdominal wall. Vesicouterine peritoneum was identified, grasped with pickups, entered sharply with Metzenbaum scissors. Bladder flap was created digitally and bladder blade was inserted. Lower uterine segment was incised in transverse fashion. Incision was extended laterally with the fingers. Membranes were ruptured and clear fluid was obtained. Baby's head was delivered without difficulty. Shoulders were delivered with minimal traction. Mouth and nose were suctioned. Cord was clamped x2 and cut and baby was handed to the waiting pediatric team with Dr. Cr and placenta was delivered manually. Uterus was exteriorized and cleared of all clots and debris. Uterine incision was repaired with 0 Vicryl in a running locked fashion. There was noted to be a window in the left corner in the broad ligament and there was bowel behind the broad ligament. The bowel was checked to be intact and clean. It was irrigated multiple times and found to be intact. The window in the broad ligament was closed with 0 Vicryl in a running fashion. Excellent hemostasis and integrity was achieved. The bowels were retracted during this time and they were protected and they were intact. For the uterine incision, second imbricating layer was placed with another 0 Vicryl in a running fashion. There were some oozing on the lower left side and those were also controlled with [id number] stitches x2. Excellent hemostasis was achieved. Cul-de-sac was irrigated with warm normal saline and suctioned. Ovaries, fallopian tubes, and cul-de-sac were found to be normal. Uterus was returned to the abdomen. Pelvis was irrigated with warm normal saline and suctioned. Uterine incision was checked to be hemostatic and then parietal peritoneum was reapproximated with 0 Vicryl in a running fashion and the rectus muscles were also reapproximated with the same suture in a running fashion and under the fascia, rectus muscles were hemostatic. Rectus fascia was reapproximated with 0 Vicryl in a running fashion. Subcuticular fat tissue was brought together with 3-0 Vicryl in a running fashion. The skin was closed with 4-0 Monocryl in a subcuticular fashion. The patient tolerated the procedure well. Sponge, lap, needle count was correct x3. No complications happened. I was present during whole procedure. The patient received cefazolin and IV azithromycin before surgery. She was taken to recovery room in stable condition. Job ID: [id number] [facility]STERAdrienne
[2021-11-29] MEDS: FERROUS SULFATE 325 MG TAB PO SCH (07:58)
[2021-11-29] MEDS: SIMETHICONE 80 MG CHEW PO SCH ×4 (07:58→21:10)
[2021-11-29] MEDS: DOCUSATE SODIUM 100 MG CAP PO SCH ×2 (07:58→21:08)
[2021-11-29] MEDS: PRENATAL VITAMIN 1 TAB PO SCH (07:58)
[2021-11-29] MEDS: KETOROLAC 30 MG/ML VIAL IV PRN ×2 (07:58→14:09)
[2021-11-29] MEDS: ceFAZolin 2000MG 2,000 MG/15 ML SYR IV SCH ×2 (08:23→16:17)
[2021-11-29] MEDS: DULoxetine HCL 60 MG CAP PO SCH (10:30)
[2021-11-29] MEDS: ATOMOXETINE HCL 40 MG CAPSULE PO SCH (10:30)
--- NOTE | 2021-11-29 12:35 | Obstetrical Progress Note ---
Date of Service November 29, 2021 Assessment & Plan Admission and Anticipated Discharge Date Admission Date: November 28, 2021 Subjective Postop check Patient is seen and examined Feels well, no complaints Pain is under control with meds No CP/ SOB/ Dizziness/ N&V/ VB/ Leg pain Not OOB yet Tolerating clears and crackers Flatus + Explained about the surgery and findings Breast feeding Vital Signs Height Weight Body Mass Index Blood Pressure Blood Pressure Position Temperature Temperature Source 5 ft 1 in 92.533 kg 38.5 130/89 Semi-fowlers 36.7 C Oral 11/28/21 02:37 11/28/21 02:37 11/27/21 21:59 11/29/21 11:20 11/29/21 11:20 11/29/21 11:20 11/29/21 11:20 Pulse Rate Respiratory Rate Pulse Oximetry 94 H 18 99 11/29/21 11:20 11/29/21 12:03 11/29/21 12:03 Intake & Output 11/28/21 11/29/21 11/29/21 22:59 06:59 14:59 Intake Total 1314.483 / 2559.300 21.75 / 2559.300 Output Total 125 / 1125 Balance 1189.483 / 1434.300 21.75 / 1434.300 Intake: IV 1314.483 / 2559.300 21.75 / 2559.300 Lactated Ringer's 1,000 ml @ 1000 / 1962.5 125 mls/hr IV .Q8H PRN Rx#: [id number] Oxytocin 30 units In 500 ml @ 0 102.483 / 172.800 21.75 / 172.800 .78 UNITS/HR 13 mls/hr IV .Q24H PRN Rx#:[id number] Penicillin G Potassium 3 mu In 212 / 424 Dextrose 5% 100 ml @ 100 mls/hr IV Q4H PRN Rx#:[id number] Output: Urine Amount (Catheter) 125 / 1125 Straight 125 / 1125 Lab Results 11/27/21 11/28/21 11/28/21 Range/Units 22:55 01:14 01:14 WBC 13.02 H (4.8-10.8) K/ul RBC 3.98 (3.93-5.22) M/uL Hgb 11.4 L (12.0-16.0) g/dl Hct 32.6 L (34.1-44.9) % MCV 81.9 (80.0-100.0) fL MCH 28.6 (25.0-34.0) pg MCHC 35.0 (32.0-36.0) g/dL RDW Std Deviation 38.3 (36.4-46.3) fL RDW Coeff of Paige 13.0 (11.5-14.5) % Plt Count 177 (130-400) K/uL MPV 10.4 (9.4-12.3) fL Immature Gran % (Auto) % Neut % (Auto) % Lymph % (Auto) % [place] % (Auto) % Eos % (Auto) % Baso % (Auto) % Neut # (Auto) (1.4-6.5) K/uL Lymph # (Auto) (1.2-3.4) K/uL [place] # (Auto) (0.24-0.82) K/uL Eos # (Auto) (0-0.50) K/uL Baso # (Auto) (0-0.2) K/uL Immature Gran # (Auto) (0.00-0.02) K/uL Sodium (136-145) mmol/L Potassium (3.5-5.1) mmol/L Chloride (98-107) mmol/L Carbon Dioxide (21-32) mmol/L Anion Gap (3-11) BUN (6-23) mg/dl Creatinine (0.6-1.2) mg/dl Est Cr Clr Drug Dosing ml/min Est GFR ( Amer) ml/min Est GFR (Non-Af Amer) ml/min BUN/Creatinine Ratio (10-20) Glucose (70-99(Fasting)) mg/dl Calcium (8.5-10.1) mg/dl Total Bilirubin (0.2-1.0) mg/dl AST (13-39) U/L ALT (7-52) U/L Alkaline Phosphatase (34-104) U/L Total Protein (6.0-8.3) gm/dl Albumin (3.4-5.0) gm/dl Globulin (2.5-4.0) gm/dl Albumin/Globulin Ratio (0.9-2) Ur Random Creatinine 82.1 mg/dl U Random Total Protein 19.9 H (0-11.9) mg/dl Protein/Creatinin Ratio 0.2 (0-0.2) SARS-CoV-2, RNA, NAAT (NEGATIVE) Blood Type AB Positive Antibody Screen NEGATIVE 11/28/21 11/28/21 11/28/21 Range/Units 01:14 03:20 23:48 WBC 16.81 H (4.8-10.8) K/ul RBC 4.29 (3.93-5.22) M/uL Hgb 12.1 (12.0-16.0) g/dl Hct 35.5 (34.1-44.9) % MCV 82.8 (80.0-100.0) fL MCH 28.2 (25.0-34.0) pg MCHC 34.1 (32.0-36.0) g/dL RDW Std Deviation 38.8 (36.4-46.3) fL RDW Coeff of Paige 13.0 (11.5-14.5) % Plt Count 162 (130-400) K/uL MPV 10.6 (9.4-12.3) fL Immature Gran % (Auto) 0.6 % Neut % (Auto) 87.5 % Lymph % (Auto) 5.7 % [place] % (Auto) 6.0 % Eos % (Auto) 0.1 % Baso % (Auto) 0.1 % Neut # (Auto) 14.71 H (1.4-6.5) K/uL Lymph # (Auto) 0.96 L (1.2-3.4) K/uL [place] # (Auto) 1.01 H (0.24-0.82) K/uL Eos # (Auto) 0.01 (0-0.50) K/uL Baso # (Auto) 0.02 (0-0.2) K/uL Immature Gran # (Auto) 0.10 H (0.00-0.02) K/uL Sodium (136-145) mmol/L Potassium (3.5-5.1) mmol/L Chloride (98-107) mmol/L Carbon Dioxide (21-32) mmol/L Anion Gap (3-11) BUN (6-23) mg/dl Creatinine (0.6-1.2) mg/dl Est Cr Clr Drug Dosing ml/min Est GFR ( Amer) ml/min Est GFR (Non-Af Amer) ml/min BUN/Creatinine Ratio (10-20) Glucose (70-99(Fasting)) mg/dl Calcium (8.5-10.1) mg/dl Total Bilirubin (0.2-1.0) mg/dl AST (13-39) U/L ALT (7-52) U/L Alkaline Phosphatase (34-104) U/L Total Protein (6.0-8.3) gm/dl Albumin (3.4-5.0) gm/dl Globulin (2.5-4.0) gm/dl Albumin/Globulin Ratio (0.9-2) Ur Random Creatinine mg/dl U Random Total Protein (0-11.9) mg/dl Protein/Creatinin Ratio (0-0.2) SARS-CoV-2, RNA, NAAT NEGATIVE (NEGATIVE) Blood Type Cancelled Antibody Screen Cancelled 11/28/21 Range/Units 23:48 WBC (4.8-10.8) K/ul RBC (3.93-5.22) M/uL Hgb (12.0-16.0) g/dl Hct (34.1-44.9) % MCV (80.0-100.0) fL MCH (25.0-34.0) pg MCHC (32.0-36.0) g/dL RDW Std Deviation (36.4-46.3) fL RDW Coeff of Paige (11.5-14.5) % Plt Count (130-400) K/uL MPV (9.4-12.3) fL Immature Gran % (Auto) % Neut % (Auto) % Lymph % (Auto) % [place] % (Auto) % Eos % (Auto) % Baso % (Auto) % Neut # (Auto) (1.4-6.5) K/uL Lymph # (Auto) (1.2-3.4) K/uL [place] # (Auto) (0.24-0.82) K/uL Eos # (Auto) (0-0.50) K/uL Baso # (Auto) (0-0.2) K/uL Immature Gran # (Auto) (0.00-0.02) K/uL Sodium 134 L (136-145) mmol/L Potassium 2.8 L (3.5-5.1) mmol/L Chloride 102 (98-107) mmol/L Carbon Dioxide 23 (21-32) mmol/L Anion Gap 9 (3-11) BUN 4 L (6-23) mg/dl Creatinine 0.55 L (0.6-1.2) mg/dl Est Cr Clr Drug Dosing 160.7 ml/min Est GFR ( Amer) > 150.0 ml/min Est GFR (Non-Af Amer) 129.5 ml/min BUN/Creatinine Ratio 7.3 L (10-20) Glucose 75 (70-99(Fasting)) mg/dl Calcium 8.4 L (8.5-10.1) mg/dl Total Bilirubin 0.8 (0.2-1.0) mg/dl AST 32 (13-39) U/L ALT 20 (7-52) U/L Alkaline Phosphatase 171 H (34-104) U/L Total Protein 6.1 (6.0-8.3) gm/dl Albumin 3.2 L (3.4-5.0) gm/dl Globulin 2.9 (2.5-4.0) gm/dl Albumin/Globulin Ratio 1.1 (0.9-2) Ur Random Creatinine mg/dl U Random Total Protein (0-11.9) mg/dl Protein/Creatinin Ratio (0-0.2) SARS-CoV-2, RNA, NAAT (NEGATIVE) Blood Type Antibody Screen PE: General: Alert, orientedx3, NAD, comfortably similing CVS: S1S2 RRR Lungs: CTAB Abd: soft, NT, ND, BS+, Dressing C/D/I, Fundus firm below U Lochia minimal Ext: NT, no edema, SCD's on AP: 26 yo female s/p P Csection , pod#0 VSS Afebrile doing well Continue to routine postop care Advance diet tonight, ambulate All questions were answered Results & Data ([facility]) Vital Signs (Past 12 Hours) Vital Signs Temp Pulse Pulse Resp BP BP Pulse Ox 11/29/21 12:03 18 99 11/29/21 11:20 20 98 11/29/21 11:20 36.7 C 94 H 20 130/89 98 11/29/21 10:10 20 97 11/29/21 09:15 18 98 11/29/21 08:15 16 95 11/29/21 08:00 18 98 11/29/21 08:00 11/29/21 08:00 36.5 C 91 H 18 134/86 98 11/29/21 07:15 18 98 11/29/21 05:36 37.7 C H 97 H 16 118/81 97 11/29/21 04:06 37 C 18 11/29/21 03:36 18 11/29/21 03:06 18 11/29/21 03:06 18 11/29/21 02:46 18 11/29/21 02:56 18 11/29/21 02:36 18 11/29/21 02:26 18 11/29/21 02:16 18 11/29/21 02:22 36.8 C 18 11/29/21 04:23 101 H 93 11/29/21 04:22 102 H 118/64 11/29/21 04:18 102 H 92 11/29/21 04:13 103 H 93 11/29/21 04:12 106 H 121/71 11/29/21 04:08 104 H 93 11/29/21 04:03 107 H 94 11/29/21 04:02 100 H 125/78 11/29/21 03:58 100 H 94 11/29/21 03:53 105 H 93 11/29/21 03:52 103 H 120/75 11/29/21 03:48 110 H 93 11/29/21 03:43 107 H 95 11/29/21 03:42 108 H 130/75 11/29/21 03:39 100 H 84 L 11/29/21 03:38 102 H 95 11/29/21 03:33 113 H 96 11/29/21 03:32 104 H 116/72 11/29/21 03:28 103 H 94 11/29/21 03:25 114 H 89 L 11/29/21 03:23 113 H 94 11/29/21 03:22 107 H 108/63 11/29/21 03:18 113 H 98 11/29/21 03:15 115 H 86 L 11/29/21 03:13 108 H 96 11/29/21 03:12 102 H 111/66 11/29/21 03:08 103 H 96 11/29/21 03:03 114 H 93 11/29/21 03:02 116 H 113/55 L 94 11/29/21 02:58 105 H 99 11/29/21 02:53 108 H 97 11/29/21 02:52 102 H 109/56 L 11/29/21 02:48 104 H 99 11/29/21 02:43 103 H 99 11/29/21 02:42 104 H 88/54 L 11/29/21 02:38 104 H 100 11/29/21 02:34 112 H 85 L 11/29/21 02:33 105 H 100 11/29/21 02:32 100 H 94/56 L 11/29/21 02:28 92 H 96 11/29/21 02:23 101 H 100 11/29/21 02:22 91 H 92/55 L 11/29/21 02:18 100 H 99 11/29/21 02:16 106 H 94 11/29/21 02:13 96 H 100 11/29/21 02:12 90 86/47 L 11/29/21 02:08 93 H 99 11/29/21 02:05 93 H 91/54 L 11/29/21 02:03 106 H 100 O2 Del Method 11/29/21 12:03 11/29/21 11:20 11/29/21 11:20 Room Air 11/29/21 10:10 11/29/21 09:15 11/29/21 08:15 11/29/21 08:00 11/29/21 08:00 Room Air 11/29/21 08:00 Room Air 11/29/21 07:15 11/29/21 05:36 Room Air 11/29/21 04:06 11/29/21 03:36 11/29/21 03:06 11/29/21 03:06 11/29/21 02:46 11/29/21 02:56 11/29/21 02:36 11/29/21 02:26 11/29/21 02:16 11/29/21 02:22 11/29/21 04:23 11/29/21 04:22 11/29/21 04:18 11/29/21 04:13 11/29/21 04:12 11/29/21 04:08 11/29/21 04:03 11/29/21 04:02 11/29/21 03:58 11/29/21 03:53 11/29/21 03:52 11/29/21 03:48 11/29/21 03:43 11/29/21 03:42 11/29/21 03:39 11/29/21 03:38 11/29/21 03:33 11/29/21 03:32 11/29/21 03:28 11/29/21 03:25 11/29/21 03:23 11/29/21 03:22 11/29/21 03:18 11/29/21 03:15 11/29/21 03:13 11/29/21 03:12 11/29/21 03:08 11/29/21 03:03 11/29/21 03:02 11/29/21 02:58 11/29/21 02:53 11/29/21 02:52 11/29/21 02:48 11/29/21 02:43 11/29/21 02:42 11/29/21 02:38 11/29/21 02:34 11/29/21 02:33 11/29/21 02:32 11/29/21 02:28 11/29/21 02:23 11/29/21 02:22 11/29/21 02:18 11/29/21 02:16 11/29/21 02:13 11/29/21 02:12 11/29/21 02:08 11/29/21 02:05 11/29/21 02:03
[2021-11-29] MEDS ORDERED: diphenhydrAMINE Capsule 25 MG CAP PO PRN (20:22)
[2021-11-29] MEDS ORDERED: KETOROLAC 30 MG/ML VIAL IV PRN (20:22)
[2021-11-29] MEDS ORDERED: PROMETHAZINE HCL 25 MG in SODIUM CHLORIDE 0.9% 50 ML IV PRN (20:22)
[2021-11-29] MEDS ORDERED: MoRPHine SULFATE 4 MG/ML 1 ML CARP\\VIAL IV PRN (20:22)
[2021-11-29] MEDS: IBUPROFEN 600 MG TAB PO PRN (21:08)
[2021-11-29] MEDS: oxyCODONE/ACETAMINOPHEN 5mg/325mg TAB PO PRN (21:09)
[2021-11-30] MEDS: ceFAZolin 2000MG 2,000 MG/15 ML SYR IV SCH (00:09)
[2021-11-30] MEDS: AZITHROMYCIN 500 MG in DEXTROSE 5% 250 ML IV SCH (00:09)
[2021-11-30] MEDS: IBUPROFEN 600 MG TAB PO PRN ×5 (02:12→22:55)
[2021-11-30] MEDS: oxyCODONE/ACETAMINOPHEN 5mg/325mg TAB PO PRN ×5 (02:12→22:55)
[2021-11-30 07:51] LABS: Basophils # (auto) 0.03 K/uL (0-0.2); Basophils % (auto) 0.2 %; Eosinophils # (auto) 0.07 K/uL (0-0.50); Eosinophils % (auto) 0.6 %; Hematocrit (blood only) 25.6 % (34.1-44.9); Hemoglobin 8.8 g/dl (12.0-16.0); Immature Granulocytes # (auto) 0.06 K/uL (0.00-0.02); Immature Granulocytes % (auto) 0.5 %; Lymphocytes # (auto) 2.27 K/uL (1.2-3.4); Lymphocytes % (auto) 18.6 %; Mean Corpuscular Hemoglobin 28.4 pg (25.0-34.0); Mean Corpuscular Hgb Conc 34.4 g/dL (32.0-36.0); Mean Corpuscular Volume 82.6 fL (80.0-100.0); Mean Platelet Volume 10.6 fL (9.4-12.3); Monocytes # (auto) 0.67 K/uL (0.24-0.82); Monocytes % (auto) 5.5 %; Neutrophils # (auto) 9.08 K/uL (1.4-6.5); Neutrophils % (auto) 74.6 %; Platelet Count 171 K/uL (130-400); RDW Coefficient of Variation 13.2 % (11.5-14.5); RDW Standard Deviation 39.5 fL (36.4-46.3); White Blood Count 12.18 K/ul (4.8-10.8)
[2021-11-30] MEDS: PRENATAL VITAMIN 1 TAB PO SCH (08:19)
[2021-11-30] MEDS: FERROUS SULFATE 325 MG TAB PO SCH (08:19)
[2021-11-30] MEDS: DOCUSATE SODIUM 100 MG CAP PO SCH ×2 (08:19→20:31)
[2021-11-30] MEDS: SIMETHICONE 80 MG CHEW PO SCH ×4 (08:19→20:31)
[2021-11-30] MEDS: DULoxetine HCL 60 MG CAP PO SCH (08:20)
[2021-11-30] MEDS: ATOMOXETINE HCL 40 MG CAPSULE PO SCH (08:20)
--- NOTE | 2021-11-30 09:22 | Obstetrical Progress Note ---
Date of Service November 30, 2021 Assessment & Plan Admission and Anticipated Discharge Date Admission Date: November 28, 2021 Subjective Patient is seen and examined. She feels well, no complaints. Pain is under control with oral meds. Ambulating without dizziness Voiding without difficulty Tolerating regular diet with out N&V Flatus + BM NEG Bleeding is minimal No fever/ chills/ CP/ SOB/ N&V/ Leg pain Breast feeding without problems Vital Signs Temp Pulse Resp BP Pulse Ox O2 Del Method 11/30/21 08:15 36.6 C 87 18 134/86 100 Room Air 11/30/21 00:10 36.8 C 91 H 20 112/69 Room Air 11/29/21 20:20 20 100 11/29/21 21:20 20 100 11/29/21 21:20 18 100 11/29/21 21:20 36.5 C 96 H 18 130/84 Room Air 11/29/21 18:44 20 100 11/29/21 17:17 20 99 11/29/21 16:20 18 98 11/29/21 15:20 18 99 11/29/21 15:20 36.8 C 98 H 18 137/88 99 Room Air 11/29/21 14:20 18 99 11/29/21 13:20 16 99 11/29/21 12:03 18 99 11/29/21 11:20 20 98 11/29/21 11:20 36.7 C 94 H 20 130/89 98 Room Air 11/29/21 10:10 20 97 Intake and Output 11/29/21 11/30/21 11/30/21 22:59 06:59 14:59 Intake Total 1039 361 / 361 Output Total 1200 / 1550 350 / 1550 Balance -160 / 492 -350 / 492 361 / 361 Intake: IV 361 / 361 Azithromycin 500 mg In Dextrose 255 / 255 5% 250 ml @ 127.5 mls/hr IV Q24H BRYAN Rx#:[id number] Penicillin G Potassium 3 mu In 106 / 106 Dextrose 5% 100 ml @ 100 mls/hr IV Q4H PRN Rx#:[id number] Oral 1040 / 1040 Output: Urine 350 / 350 Urine Amount (Catheter) 1200 / 1200 Cai/Indwelling 1200 / 1200 Lab Results 09/14/22 09/15/22 09/15/22 Range/Units 22:55 01:14 01:14 WBC 13.02 H (4.8-10.8) K/ul RBC 3.98 (3.93-5.22) M/uL Hgb 11.4 L (12.0-16.0) g/dl Hct 32.6 L (34.1-44.9) % MCV 81.9 (80.0-100.0) fL MCH 28.6 (25.0-34.0) pg MCHC 35.0 (32.0-36.0) g/dL RDW Std Deviation 38.3 (36.4-46.3) fL RDW Coeff of Paige 13.0 (11.5-14.5) % Plt Count 177 (130-400) K/uL MPV 10.4 (9.4-12.3) fL Immature Gran % (Auto) % Neut % (Auto) % Lymph % (Auto) % [place] % (Auto) % Eos % (Auto) % Baso % (Auto) % Neut # (Auto) (1.4-6.5) K/uL Lymph # (Auto) (1.2-3.4) K/uL [place] # (Auto) (0.24-0.82) K/uL Eos # (Auto) (0-0.50) K/uL Baso # (Auto) (0-0.2) K/uL Immature Gran # (Auto) (0.00-0.02) K/uL Sodium (136-145) mmol/L Potassium (3.5-5.1) mmol/L Chloride (98-107) mmol/L Carbon Dioxide (21-32) mmol/L Anion Gap (3-11) BUN (6-23) mg/dl Creatinine (0.6-1.2) mg/dl Est Cr Clr Drug Dosing ml/min Est GFR ( Amer) ml/min Est GFR (Non-Af Amer) ml/min BUN/Creatinine Ratio (10-20) Glucose (70-99(Fasting)) mg/dl Calcium (8.5-10.1) mg/dl Total Bilirubin (0.2-1.0) mg/dl AST (13-39) U/L ALT (7-52) U/L Alkaline Phosphatase (34-104) U/L Total Protein (6.0-8.3) gm/dl Albumin (3.4-5.0) gm/dl Globulin (2.5-4.0) gm/dl Albumin/Globulin Ratio (0.9-2) Ur Random Creatinine 82.1 mg/dl U Random Total Protein 19.9 H (0-11.9) mg/dl Protein/Creatinin Ratio 0.2 (0-0.2) SARS-CoV-2, RNA, NAAT (NEGATIVE) Blood Type AB Positive Antibody Screen NEGATIVE 11/28/21 11/28/21 11/28/21 Range/Units 01:14 03:20 23:48 WBC 16.81 H (4.8-10.8) K/ul RBC 4.29 (3.93-5.22) M/uL Hgb 12.1 (12.0-16.0) g/dl Hct 35.5 (34.1-44.9) % MCV 82.8 (80.0-100.0) fL MCH 28.2 (25.0-34.0) pg MCHC 34.1 (32.0-36.0) g/dL RDW Std Deviation 38.8 (36.4-46.3) fL RDW Coeff of Paige 13.0 (11.5-14.5) % Plt Count 162 (130-400) K/uL MPV 10.6 (9.4-12.3) fL Immature Gran % (Auto) 0.6 % Neut % (Auto) 87.5 % Lymph % (Auto) 5.7 % [place] % (Auto) 6.0 % Eos % (Auto) 0.1 % Baso % (Auto) 0.1 % Neut # (Auto) 14.71 H (1.4-6.5) K/uL Lymph # (Auto) 0.96 L (1.2-3.4) K/uL [place] # (Auto) 1.01 H (0.24-0.82) K/uL Eos # (Auto) 0.01 (0-0.50) K/uL Baso # (Auto) 0.02 (0-0.2) K/uL Immature Gran # (Auto) 0.10 H (0.00-0.02) K/uL Sodium (136-145) mmol/L Potassium (3.5-5.1) mmol/L Chloride (98-107) mmol/L Carbon Dioxide (21-32) mmol/L Anion Gap (3-11) BUN (6-23) mg/dl Creatinine (0.6-1.2) mg/dl Est Cr Clr Drug Dosing ml/min Est GFR ( Amer) ml/min Est GFR (Non-Af Amer) ml/min BUN/Creatinine Ratio (10-20) Glucose (70-99(Fasting)) mg/dl Calcium (8.5-10.1) mg/dl Total Bilirubin (0.2-1.0) mg/dl AST (13-39) U/L ALT (7-52) U/L Alkaline Phosphatase (34-104) U/L Total Protein (6.0-8.3) gm/dl Albumin (3.4-5.0) gm/dl Globulin (2.5-4.0) gm/dl Albumin/Globulin Ratio (0.9-2) Ur Random Creatinine mg/dl U Random Total Protein (0-11.9) mg/dl Protein/Creatinin Ratio (0-0.2) SARS-CoV-2, RNA, NAAT NEGATIVE (NEGATIVE) Blood Type Cancelled Antibody Screen Cancelled 11/28/21 11/30/21 Range/Units 23:48 06:58 WBC 12.18 H (4.8-10.8) K/ul RBC 3.10 L (3.93-5.22) M/uL Hgb 8.8 L D (12.0-16.0) g/dl Hct 25.6 L (34.1-44.9) % MCV 82.6 (80.0-100.0) fL MCH 28.4 (25.0-34.0) pg MCHC 34.4 (32.0-36.0) g/dL RDW Std Deviation 39.5 (36.4-46.3) fL RDW Coeff of Paige 13.2 (11.5-14.5) % Plt Count 171 (130-400) K/uL MPV 10.6 (9.4-12.3) fL Immature Gran % (Auto) 0.5 % Neut % (Auto) 74.6 % Lymph % (Auto) 18.6 % [place] % (Auto) 5.5 % Eos % (Auto) 0.6 % Baso % (Auto) 0.2 % Neut # (Auto) 9.08 H (1.4-6.5) K/uL Lymph # (Auto) 2.27 (1.2-3.4) K/uL [place] # (Auto) 0.67 (0.24-0.82) K/uL Eos # (Auto) 0.07 (0-0.50) K/uL Baso # (Auto) 0.03 (0-0.2) K/uL Immature Gran # (Auto) 0.06 H (0.00-0.02) K/uL Sodium 134 L (136-145) mmol/L Potassium 2.8 L (3.5-5.1) mmol/L Chloride 102 (98-107) mmol/L Carbon Dioxide 23 (21-32) mmol/L Anion Gap 9 (3-11) BUN 4 L (6-23) mg/dl Creatinine 0.55 L (0.6-1.2) mg/dl Est Cr Clr Drug Dosing 160.7 ml/min Est GFR ( Amer) > 150.0 ml/min Est GFR (Non-Af Amer) 129.5 ml/min BUN/Creatinine Ratio 7.3 L (10-20) Glucose 75 (70-99(Fasting)) mg/dl Calcium 8.4 L (8.5-10.1) mg/dl Total Bilirubin 0.8 (0.2-1.0) mg/dl AST 32 (13-39) U/L ALT 20 (7-52) U/L Alkaline Phosphatase 171 H (34-104) U/L Total Protein 6.1 (6.0-8.3) gm/dl Albumin 3.2 L (3.4-5.0) gm/dl Globulin 2.9 (2.5-4.0) gm/dl Albumin/Globulin Ratio 1.1 (0.9-2) Ur Random Creatinine mg/dl U Random Total Protein (0-11.9) mg/dl Protein/Creatinin Ratio (0-0.2) SARS-CoV-2, RNA, NAAT (NEGATIVE) Blood Type Antibody Screen PE: General: Alert, orientedx3, NAD CVS: S1S2 RRR Lungs; CTAB Abd: soft, NT, ND, BS+, fundus firm, below Umbilicus Incision: Clean, dry, intact Perineum intact, Lochia rubra minimal Ext; NT, no edema AP: 26 yo s/p C Section, pod# 1 VSS Afebrile doing well Continue routine postop care Encourage ambulation, PO intake All questions were answered Anticipate D/C home tomorrow Results & Data ([facility]) Vital Signs (Past 12 Hours) Vital Signs Temp Pulse Resp BP Pulse Ox O2 Del Method 11/30/21 08:15 36.6 C 87 18 134/86 100 Room Air 11/30/21 00:10 36.8 C 91 H 20 112/69 Room Air 11/29/21 21:20 20 100 11/29/21 21:20 18 100 11/29/21 21:20 36.5 C 96 H 18 130/84 Room Air
[2021-11-30] MEDS ORDERED: bisacodyL 5 MG TABEC PO SCH (20:00)
[2021-11-30] MEDS: LACTATED RINGER'S 1,000 ML IV SCH ×2 (21:40→21:41)
[2021-12-01] MEDS: AZITHROMYCIN 500 MG in DEXTROSE 5% 250 ML IV SCH (00:57)
[2021-12-01] MEDS ORDERED: bisacodyL 10 MG SUPP PR PRN (02:09)
[2021-12-01] MEDS: oxyCODONE/ACETAMINOPHEN 5mg/325mg TAB PO PRN ×2 (02:52→07:09)
[2021-12-01] MEDS: IBUPROFEN 600 MG TAB PO PRN ×2 (02:53→07:10)
[2021-12-01 06:31] LABS: Basophils # (auto) 0.03 K/uL (0-0.2); Basophils % (auto) 0.3 %; Eosinophils # (auto) 0.09 K/uL (0-0.50); Eosinophils % (auto) 0.9 %; Hematocrit (blood only) 24.2 % (34.1-44.9); Hemoglobin 8.3 g/dl (12.0-16.0); Immature Granulocytes # (auto) 0.06 K/uL (0.00-0.02); Immature Granulocytes % (auto) 0.6 %; Lymphocytes # (auto) 2.72 K/uL (1.2-3.4); Lymphocytes % (auto) 28.2 %; Mean Corpuscular Hemoglobin 28.6 pg (25.0-34.0); Mean Corpuscular Hgb Conc 34.3 g/dL (32.0-36.0); Mean Corpuscular Volume 83.4 fL (80.0-100.0); Mean Platelet Volume 10.3 fL (9.4-12.3); Monocytes # (auto) 0.52 K/uL (0.24-0.82); Monocytes % (auto) 5.4 %; Neutrophils # (auto) 6.21 K/uL (1.4-6.5); Neutrophils % (auto) 64.6 %; Platelet Count 186 K/uL (130-400); RDW Coefficient of Variation 13.2 % (11.5-14.5); White Blood Count 9.63 K/ul (4.8-10.8)
[2021-12-01] MEDS: FERROUS SULFATE 325 MG TAB PO SCH (07:09)
[2021-12-01] MEDS: SIMETHICONE 80 MG CHEW PO SCH (07:09)
[2021-12-01] MEDS: DOCUSATE SODIUM 100 MG CAP PO SCH (07:09)
[2021-12-01] MEDS: PRENATAL VITAMIN 1 TAB PO SCH (07:09)
[2021-12-01] MEDS: DULoxetine HCL 60 MG CAP PO SCH (07:11)
[2021-12-01] MEDS: ATOMOXETINE HCL 40 MG CAPSULE PO SCH (07:11)
--- NOTE | 2021-12-03 18:16 | Obstetrical Progress Note ---
Date of Service December 03, 2021 Assessment & Plan Admission and Anticipated Discharge Date Admission Date: November 28, 2021 Subjective I called her to check how she has been doing since C section. She states she doing well. Walking around without dizziness. VB minimal. No fever/ chills/ N&V. Flatus + BM + Appetite normal. LE edema, recommended elevate the legs. All questions were answered.
== END 2021-12-01 11:40 | disposition home or self-care (01) | DRG 788 ==
LOC: OPB 21:32 → 4S1 21:34 → 4E2 11-29 04:59

== ENCOUNTER 2023-07-22 12:09 | Inpatient (IN) ==
[2023-07-22] MEDS ORDERED: LIDOCAINE 1% LOCAL 20 ML VIAL INFIL PRN (12:16)
[2023-07-22] MEDS: LACTATED RINGER'S 1,000 ML IV PRN (12:49)
[2023-07-22] MEDS ORDERED: SODIUM CHLORIDE 0.9% 250 ML IV PRN (12:50)
[2023-07-22 13:03] LABS: Hematocrit (blood only) 37.1 % (37.0-47.0); Hemoglobin 12.7 g/dl (12.0-16.0); Mean Corpuscular Hemoglobin 28.1 pg (25.0-34.0); Mean Corpuscular Hgb Conc 34.2 g/dL (32.0-36.0); Mean Corpuscular Volume 82.1 fL (80.0-100.0); Mean Platelet Volume 10.6 fL (9.4-12.4); Platelet Count 214 K/uL (130-400); RDW Coefficient of Variation 13.3 % (11.5-14.5); RDW Standard Deviation 39.5 fL (36.4-46.3); Red Blood Count 4.52 M/uL (4.20-5.40)
[2023-07-22] MEDS: PENICILLIN GK 6 MU in DEXTROSE 5% 250 ML IV ONE (13:16)
[2023-07-22] MEDS ORDERED: NALOXONE HCL 0.4 MG/1 ML VIAL/CARP IV PRN (13:40)
[2023-07-22] MEDS ORDERED: ePHEDrine sulfate 50 MG/ML AMP IV PRN (13:40)
[2023-07-22] MEDS ORDERED: BUPIVACAINE 0.25% PF 30 ML VIAL EPI PRN (13:40)
[2023-07-22] MEDS ORDERED: fentANYL 2 MCG/ML BUPIVacaine 0.125%-NSS 100ML BAG EPI PRN (13:40)
[2023-07-22] MEDS ORDERED: fentaNYL citrate PF 100 MCG/2 ML VIAL EPI PRN (13:40)
[2023-07-22] MEDS ORDERED: ROPIVACAINE 0.5% PF 5 MG/ML 20 ML VIAL EPI PRN (13:40)
[2023-07-22] MEDS ORDERED: SODIUM CHLORIDE 0.9% PF INJ 10 ML VIAL EPI PRN (13:40)
[2023-07-22] MEDS ORDERED: NALBUPHINE HCL 5 MG in SYRINGE 0 ML IV PRN (13:40)
[2023-07-22] MEDS ORDERED: diphenhydrAMINE 50 MG/ML VIAL IV PRN (13:40)
[2023-07-22] MEDS ORDERED: NALOXONE HCL 1 MG in SODIUM CHLORIDE 0.9% 1,000 ML IV PRN (13:40)
[2023-07-22] MEDS ORDERED: LIDOCAINE 2% MPF LOCAL 5 ML VIAL EPI PRN (13:40)
--- NOTE | 2023-07-22 13:40 | History & Physical Report ---
Date of Service July 22, 2023 Assessment & Plan (1) Previous delivery affecting : Plan: IUP at 38 1/7 weeks in active labor requesting epidural analgesia now will reassess for SPROM after patient comfortable. nitrazine was negative and no obvious fluid on exam initially will start PCN for GBS prophylaxis now type and screen done. Admission and Anticipated Discharge Date Admission Date: July 22, 2023 History of Present Illness Primary Care Provider: NO PCP Patient is a 28 yo female EDC 08/04/[birth year] who presents at 38 1/7 weeks with leaking brown tinged fluid for several hours and spontaneous onset of contractions. complicated by delivery with last for arrest of dilation and delivery of a 8lb 15 oz infant at 38 5/7 weeks. patient requesting trial of labor with this . GBS positive. Allergies Allergy/AdvReac Type Severity Reaction Status Date / Time No Known Allergies Allergy Verified 07/20/23 10:10 Home Medications Medication Instructions Recorded Confirmed Type prenat.vits,saw,rfn-nclu-lrpme 1 tab PO DAILY 07/13/21 07/20/23 History sertraline 50 mg tablet (Zoloft) 150 mg PO QAM 11/25/22 07/20/23 History Patient History Medical History ADHD History of COVID-19 03/2021- no hosp; resolved Kidney stones hx- able to pass on own Surgical History H/O sinus surgery History of Hx of colonoscopy S/P tonsillectomy and adenoidectomy S/P wisdom tooth extraction Family History Mother Psoriatic arthritis Mother Diabetes Grandfather (Maternal) Asthma Grandfather (Paternal) Asthma Grandfather (Maternal) Myocardial infarction Grandfather (Paternal) Myocardial infarction Mother Hypertension Father Hypertension Other No significant family history Denies family history of Ovarian cancer Breast cancer Colorectal cancer Social History Smoking Status: Never smoker Tobacco Type: Cigarettes Age Quit Using Tobacco: 25; Second Hand Exposure: No; Do You Dip or Chew Tobacco: No; Hx Alcohol Use: No Hx Substance Use: No Preferred Language: Nam[place]ian Communication Ability: Effective Periodicals Library Assistant Required: No Beliefs That Will Affect Care: None marital status: Single marital status details: irvin boyfriend [phone] Current Living Situation: Significant Other Current Living Situation Comment: RENZO, son, 1 dog current occupational status: employed current occupation: [employer] TE[employer]IAN Other Information That Helps Us Care for You: No Feels Safe at Home: Yes Safety Concerns: Feels Safe At This Time Childhood Exposure to Second-Hand Smoke: No Diet: regular Dental Care, Regularly: Yes Seatbelt Use: always Sunscreen Use: Yes Do you think of yourself as: straight/heterosexual Gender Identity: Female Assistive Devices: None Review of Systems All systems reviewed & are unremarkable except as noted in HPI & below Physical Exam Constitutional: WD/WN, vitals as above Psychiatric: A+Ox3, euthymic affect Genitourinary: OB Exam Abdomen: + vertex and + regular contractions (S6hbalrs s) Manual OB Exam: + cervical dilation 4 cm (4-5), + cervical effacement 80%, + station -1 and + amniotic fluid (nitrazine negative) OB Exam Monitor Tracing: + external FHT monitor used, + external uterine monitor used, + category I and + normal FHT variability Results & Data Vital Signs (Past 12 Hours) Vital Signs Temp Pulse Resp BP 07/22/23 12:23 93 H 138/92 07/22/23 12:21 98.4 F 22 Coding Level of Care Code None Diagnoses Previous delivery affecting O34.219
--- NOTE | 2023-07-22 13:43 | Anesthesiology Consultation ---
Date of Service July 22, 2023 Assessment & Plan Chart Review Chart Review: Acceptable Risk for Surgery and Patient NOT seen in Pre Admission Testing Consults Requested none ASA ASA2 Proposed Anesthesia Anesthesia Type: Labor Epidural Risk / Benefits Reviewed With: PT / POA / Parent / Guardian, Accepts Plan and Informed Consent Obtained History Height/Weight Height: 5 ft 1 in Weight: 92.079 kg Allergies Allergy/AdvReac Type Severity Reaction Status Date / Time No Known Allergies Allergy Verified 07/20/23 10:10 Medications Home Medications Medication Instructions Recorded Confirmed Last Taken prenat.vits,saw,bjt-lcmb-nucvc 1 tab PO DAILY 07/13/21 07/20/23 07/20/23 sertraline 50 mg tablet (Zoloft) 150 mg PO QAM 11/25/22 07/20/23 07/20/23 Active Medications Generic Name Dose Route Start Last Admin Trade Name Freq PRN Reason Stop Dose Admin Lactated Ringer's 1,000 mls @ 125 mls/hr 07/22/23 12:16 07/22/23 13:16 Lr IV 07/24/23 12:15 125 mls/hr .Q8H PRN Infusion L&D Protocol Protocol NPO Date Last Intake of Fluids: 07/22/23 Time Last Intake of Fluids: 13:30 Date Last Intake of Solids: 07/21/23 Time Last Intake of Solids: 02:00 Past Medical History Medical History History of COVID-19 03/2021- no hosp; resolved ADHD Kidney stones hx- able to pass on own Exercise / Class Metabolic Activity II 4-5 Yardwork/Stairs/Walk up hill Past Family History Family History Mother Psoriatic arthritis Mother Diabetes Grandfather (Maternal) Asthma Grandfather (Paternal) Asthma Grandfather (Maternal) Myocardial infarction Grandfather (Paternal) Myocardial infarction Mother Hypertension Father Hypertension Other No significant family history Denies family history of Ovarian cancer Breast cancer Colorectal cancer Past Surgical History Surgical History Hx of colonoscopy History of S/P wisdom tooth extraction S/P tonsillectomy and adenoidectomy H/O sinus surgery Past Anesthesia History No Hx of Anesthesia Complications and No Family Hx of Anesthesia Complications History of PONV No Hx of PONV and No Hx of Motion Sickness Social History Smoking Status: Never smoker Do You Dip or Chew Tobacco: No Hx Alcohol Use: No Hx Substance Use: No substance use type: does not use Review of Systems ROS Unobtainable: All systems reviewed & are unremarkable except as noted in HPI & below Physical Exam Vital Signs Last Vital Signs Temp 36.9 C 07/22/23 12:21 Pulse 83 07/22/23 13:36 Resp 22 07/22/23 12:21 BP 138/92 07/22/23 12:23 Pulse Ox 94 07/22/23 13:36 ENMT Mouth: no TMJ abnormality Thyromental Distance: > or= 3.5 Finger Breadths Mallampati Class: II Neck normal visual inspection and trachea midline; neck extension not limited Respiratory normal respiratory effort Auscultation: lungs clear to auscultation bilaterally Cardiovascular Rate/Rhythm: regular rate and regular rhythm Heart Sounds: no murmur Musculoskeletal Spine: normal cervical ROM Extremities: full ROM of extremities Neurologic moves all extremities Psychiatric Orientation: alert and oriented x 3 Testing Laboratory Results 07/22/23 12:48
[2023-07-22] MEDS: fentANYL 2 MCG/ML BUPIVacaine 0.125%-NSS 100ML BAG ONE (13:56)
[2023-07-22] MEDS: fentaNYL citrate PF 100 MCG/2 ML VIAL ONE (13:57)
[2023-07-22] MEDS: BUPIVACAINE 0.25% PF 30 ML VIAL ONE (14:04)
[2023-07-22] MEDS: LIDOCAINE 2%/EPINEPHRINE 1:200,000 20 ML PF ONE (14:04)
[2023-07-22] MEDS: ePHEDrine sulfate 50 MG/ML AMP ONE (16:35)
[2023-07-22] MEDS: BUPIVACAINE 0.25% PF 30 ML VIAL EPI STA (16:36)
[2023-07-22] MEDS: LIDOCAINE 2%/EPINEPHRINE 1:200,000 20 ML PF EPI STA (16:36)
[2023-07-22] MEDS: SODIUM CHLORIDE 0.9% PF INJ 10 ML VIAL ONE (16:36)
[2023-07-22] MEDS: fentaNYL citrate PF 100 MCG/2 ML VIAL EPI STA (16:36)
[2023-07-22] MEDS: SODIUM CHLORIDE 0.9% PF INJ 10 ML VIAL EPI STA (16:36)
[2023-07-22] MEDS ORDERED: ONDANSETRON INJ 2 MG/ML 2 ML VIAL IV PRN (16:53)
[2023-07-22] MEDS: ACETAMINOPHEN 325 MG TAB PO PRN (17:03)
[2023-07-22] MEDS: OXYTOCIN 30 UNITS/NSS 30 UNITS/500 ML BAG IV PRN ×2 (17:05→19:25)
[2023-07-22] MEDS: diphenhydrAMINE 50 MG/ML VIAL IV STA (17:09)
[2023-07-22] MEDS: PENICILLIN GK 3 MU in DEXTROSE 5% 100 ML IV PRN (17:28)
--- NOTE | 2023-07-22 19:27 | Delivery Summary ---
Vaginal Delivery Summary Date of Service July 22, 2023 Vaginal Delivery Summary and 2nd Degree LAC (vaginal) Patient is a 28-year-old 2 para 1-0-0-1 female EDC of 08/04/2023 who presented in active labor at 38-1/7 weeks. This was complicated by a prior section for arrest of dilation. Membranes ruptured spontaneously for clear fluid. She was also positive for GBS and received 2 doses of penicillin prior to delivery. She received effective epidural analgesia. She did require Pitocin augmentation to establish a consistent contraction pattern. She progressed to full dilation with the urge to push. She pushed effectively over intact perineum for delivery of a viable male . After the head was delivered the rest the was delivered without maternal effort. He was placed on the mother's abdomen for further attention and drying. After 1 minute, the cord was clamped and cut. After cord blood was obtained, the placenta was expressed intact with a three-vessel cord. bleeding was controlled with dilute Pitocin and fundal massage. Second-degree vaginal laceration that extended to the labia bilaterally was repaired with 3-0 chromic in the usual fashion. QBL was 315 cc. Mother and infant were doing well after delivery. [facility] [place] Charge Delivery Type Details: and 2nd Degree LAC (vaginal)
--- NOTE | 2023-07-22 20:07 | Anesthesia Procedure Note ---
Date of Service July 22, 2023 Anesthesia Post Epidural Note Vital Signs Vital Signs: Temp Pulse Resp BP Pulse Ox 36.8 C 98 H 18 145/90 H 98 07/22/23 17:02 07/22/23 20:02 07/22/23 18:00 07/22/23 20:02 07/22/23 19:05 Pain Intensity Bilateral Lower Abdomen: Pain Intensity: 1 Notes Mental Status: alert / awake / arousable and participated in evaluation Patient Amnestic to Procedure: No Nausea / Vomiting: adequately controlled Pain: adequately controlled Airway Patency, RR, SpO2: stable & adequate BP & HR: stable & adequate Hydration State: stable & adequate Neuraxial Anesthesia: was administered and sensory block is resolving Anesthetic Complications: no major complications apparent and Pt Satisfied with anesthetic care Epidural: Removed without complications and With tip intact
[2023-07-23] MEDS: IBUPROFEN 600 MG TAB PO PRN (03:27)
--- NOTE | 2023-07-23 06:06 | Obstetrical Progress Note ---
Date of Service <Olimpia Talavera DO [facility] - Last Filed: 07/23/23 06:07> July 23, 2023 Assessment & Plan <Olimpia Talavera DO [place] - Last Filed: 07/23/23 06:07> (1) care following vaginal delivery: Feels well today. Eating well, voiding well, ambulating well. Pain well controlled with ibuprofen. Routine care; OOB, ambulation, continue reg diet Anticipate discharge 24-48 hours after , today or most likely tomorrow. After discharge will have 6 week follow-up with Dr. Mcnamara. <Kaykay Mcnamara MD, FACOG - Last Filed: 07/23/23 08:41> (1) care following vaginal delivery: Subjective <Olimpia Ilan Rod DO - Last Filed: 07/23/23 06:07> Pt is a 28 y/o female who is PPD#1 following . Today, pt is doing well. No questions or complaints. She is tolerating oral intake, ambulating, and voiding appropriately. She is breast feeding and it is going well. Cramps are mild and lochia is improving. Constitutional: no fever, no chills or no sweats Respiratory: no dyspnea Cardiovascular: no chest pain or no palpitations Breast: no breast pain Genitourinary (female): no dysuria Neurologic: no headache(s) no changes in vision, no headaches Physical Exam <Olimpia Talavera DO [place] - Last Filed: 07/23/23 06:07> General: Alert, oriented. No acute distress. Cardiac: Regular rate and rhythm, no murmurs, rubs, or gallops. Respiratory: Clear to auscultation bilaterally, no wheezes/rales/rhonchi. No increased work of breathing. Symmetrical chest rise. No respiratory distress. Abdomen: Soft, nontender, nondistended. Bowel sounds present. Uterus: Uterine fundus firm, palpable below the umbilicus. Lower extremities: No lower extremity edema or swelling. No deep calf pain. Results & Data <Olimpiadharmesh Rod DO - Last Filed: 07/23/23 06:07> Vital Signs (Past 12 Hours) Vital Signs Temp Pulse Pulse Resp BP BP Pulse Ox 07/23/23 03:00 36.8 C 84 20 127/85 99 07/22/23 22:58 36.8 C 82 18 141/97 H 99 07/22/23 22:35 07/22/23 21:17 112 H 141/77 H 07/22/23 21:02 37.1 C 18 07/22/23 21:02 105 H 135/73 07/22/23 20:47 101 H 131/73 07/22/23 20:32 100 H 137/76 07/22/23 20:17 98 H 140/84 07/22/23 20:02 98 H 145/90 H 07/22/23 19:47 96 H 142/86 H 07/22/23 19:32 86 140/85 07/22/23 19:17 91 H 134/81 07/22/23 19:05 95 H 98 07/22/23 19:02 93 H 135/77 07/22/23 19:00 99 H 98 07/22/23 18:57 96 H 90 07/22/23 18:55 94 H 94 07/22/23 18:50 97 H 95 07/22/23 18:47 89 139/81 07/22/23 18:45 93 H 95 07/22/23 18:40 98 H 96 07/22/23 18:35 94 H 94 07/22/23 18:33 102 H 153/79 H 07/22/23 18:30 100 H 93 07/22/23 18:26 113 H 85 L 07/22/23 18:25 108 H 94 07/22/23 18:21 112 H 88 L 07/22/23 18:20 105 H 94 07/22/23 18:19 96 H 181/106 H 07/22/23 18:15 90 96 07/22/23 18:10 90 95 07/22/23 18:05 94 H 95 O2 Del Method 07/23/23 03:00 Room Air 07/22/23 22:58 Room Air 07/22/23 22:35 Room Air 07/22/23 21:17 07/22/23 21:02 07/22/23 21:02 07/22/23 20:47 07/22/23 20:32 07/22/23 20:17 07/22/23 20:02 07/22/23 19:47 07/22/23 19:32 07/22/23 19:17 07/22/23 19:05 07/22/23 19:02 07/22/23 19:00 07/22/23 18:57 07/22/23 18:55 07/22/23 18:50 07/22/23 18:47 07/22/23 18:45 07/22/23 18:40 07/22/23 18:35 07/22/23 18:33 07/22/23 18:30 07/22/23 18:26 07/22/23 18:25 07/22/23 18:21 07/22/23 18:20 07/22/23 18:19 07/22/23 18:15 07/22/23 18:10 07/22/23 18:05 Supervising Physician <Kaykay Mcnamara MD, FACOG - Last Filed: 07/23/23 08:41> Co-Signing Physician Notes Resident Physician Supervision Note: I interviewed and examined the patient. Discussed with Dr. Rod and agree with findings and plan as documented in the note. Any exceptions or clarifications are listed here: [None] Documented By: Kaykay Mcnamara MD, FACOG Resident Activity Tracking <Olimpia Rod DO - Last Filed: 07/23/23 06:07> Resident Involvement: Resident Care Provided Care Provided: OB Delivery
[2023-07-23] MEDS: SERTRALINE HCL 50 MG TABLET PO SCH (08:20)
[2023-07-23] MEDS: MEASLES, MUMPS & RUBELLA VIRUS VACCINE (MMR) 0.5ML VIAL ONE (12:38)
== END 2023-07-23 18:45 | disposition home or self-care (01) | DRG 807 ==
LOC: OPB 12:09 → 4S1 12:11 → 4E2 22:13